=== PATIENT | female | born 1940 | race Caucasian/White ===

== ENCOUNTER → 2024-05-24 12:56 | Outpatient (REF) | payer MEDICARE, SELFPAY ==
[2024-05-24 14:31] LABS: ALT (SGPT) 18 U/L (0-35); AST (SGOT) 26 U/L (14-36); Albumin 4.3 g/dl (3.5-5.0); Alkaline Phosphatase 68 U/L (38-126); Blood Urea Nitrogen 19 mg/dl (7-17); Calcium 9.9 mg/dl (8.4-10.2); Carbon Dioxide 29 mmol/L (22-30); Chloride 101 mmol/L (98-107); Glucose 94 mg/dl (70-99); Potassium 4.9 mmol/L (3.5-5.1); Sodium 136 mmol/L (135-145); Total Protein 6.9 g/dl (6.3-8.2); eGFR > 60.00
== END ==
LOC: RAD 12:56
PROVIDERS: ATTENDING PHYSICIAN Internal Medicine Rheumatology; FAMILY PHYSICIAN Student in an Organized Health Care Education/Training Program
DX: M81.0 Age-related osteoporosis without current pathological fracture (principal)
CPT/HCPCS: 36415; 77080; 80053; 82306

== ENCOUNTER 2024-08-27 03:33 | Inpatient (IN) | payer MEDICARE, SELFPAY ==
[2024-08-26 22:11] VITALS: BP 177/88
[2024-08-26 22:42] LABS: % Basophils 0.4 % (0-2); % Eosinophils 0.2 % (0-6); % Immature Granulocytes 0.7 % (0-0.5); % Lymphocytes 9.8 % (20.5-51.1); % Monocytes 3.7 % (1.7-9.3); % Neutrophils 85.2 % (42.2-75.2); Absolute Immature Granulocytes 0.1 10^3/uL (0-0.05); Absolute Monocytes 0.4 10^3/uL (0.1-0.6); Absolute Neutrophils 8.8 10^3/uL (1.4-6.5); Hematocrit 44.3 % (37.0-47.0); Hemoglobin 14.9 g/dL (12.0-16.0); Mean Corp Hgb Conc. 33.6 g/dL (33.0-37.0); Mean Corpuscular Hgb 30.5 pg (27.0-31.0); Mean Corpuscular Volume 90.8 fL (81.0-99.0); Mean Platelet Volume 9.2 fL (7.4-10.4); Nucleated Red Blood Cells % 0 %; Platelet Count 311 10^3/uL (130-400); Red Blood Cell Count 4.88 10^6/uL (4.20-5.40); Red Cell Dist. Width 12.8 % (11.5-14.5); White Blood Cell Count 10.4 10^3/uL (4.8-10.8)
[2024-08-26 22:55] LABS: ALT (SGPT) 22 U/L (0-35); AST (SGOT) 28 U/L (14-36); Albumin 4.5 g/dl (3.5-5.0); Alkaline Phosphatase 64 U/L (38-126); Blood Urea Nitrogen 27 mg/dl (7-17); Calcium 10.3 mg/dl (8.4-10.2); Carbon Dioxide 32 mmol/L (22-30); Chloride 96 mmol/L (98-107); Glucose 129 mg/dl (70-99); Lipase 72 U/L (23-300); Potassium 4.7 mmol/L (3.5-5.1); Sodium 138 mmol/L (135-145); Total Bilirubin 0.9 mg/dl (0.2-1.3); Total Protein 7.2 g/dl (6.3-8.2); eGFR > 60.00
[2024-08-26 23:06] LABS: Troponin I < 0.012 ng/ml
[2024-08-26 23:30] VITALS: BMI 24.2
[2024-08-26 23:35] VITALS: BP 136/86
[2024-08-27] VITALS (13 sets, daily range): BP systolic 91–157; BP diastolic 42–92; BMI 23.1
--- NOTE | 2024-08-27 00:02 | ED.GENMED ---
History of Present Illness
<COURTNEY Schumacher - Last Filed: 08/27/24 06:12>
General
Chief Complaint: Abdominal Pain
Source: patient and family
Time Seen by Provider: 08/26/24 23:53
Nursing documentation reviewed up to this point in time: agreed with
History of Present Illness
History of Present Illness:
A pleasant 84-year-old female with a past medical history of A-fib presents to the emergency department for epigastric pain and right upper quadrant pain x 12 hours. She states that the abdominal pain initially began shortly after eating chicken
salad at 12 PM, 08/26. she states it became worse throughout the day intermittently. She currently rates rates the pain 05/05.She then states that she went about her day and ate dinner at 4 PM this afternoon which consisted of leftover fettuccine
noodles and sauce. Around 7:30 PM tonight she became nauseous and began vomiting which did not relieve the abdominal pain. She states today she has taken Gas-X and Pepto-Bismol without Relief of symptoms. She admits to being intermittently
constipated at her baseline. She states her last bowel movement was 3 days ago. She denies chest pain, shortness of breath, diarrhea,
Last meal was at 4 PM 08-26-2024. Last fluid intake was 8 PM 08-26-2024.
Past History
<COURTNEY Schumacher - Last Filed: 08/27/24 06:12>
Past History
ED Past Medical History: Valvular disease (MVP), Other (Mitral valve prolapse, Lezama's neuroma bilateral feet) and Other (Arthritis, fractures)
ED Past Surgical History: Gynecological (Hysterectomy) and Orthopedic (Neuroma removal on toes, elbow bone removed)
Social History
Tobacco: Non-smoker
Alcohol: None
Drug: None
Personal:
Living: with family
Employment: Retired
Review of Systems
<COURTNEY Schumacher - Last Filed: 08/27/24 06:12>
Review of Systems
Allergies reviewed?: Yes
All Other Systems: ROS reviewed and negative except as documented in HPI and ROS
Phy Exam
<Vicente Lugo [facility] - Last Filed: 08/27/24 06:12>
General Physical Exam
General Presentation: well appearing and no apparent distress
General age: appears stated age
General Skin: warm
General Habitus: normal and elderly
General Mental: alert
General Hydration: appears well hydrated
Eye Exam
Eye Exam: PERRL and EOMI
Cardiovascular Exam
Cardiovascular Exam: regular rate/rhythm, no edema, no murmur, normal peripheral pulses and systolic murmur
Systolic Murmur: 5/6
Pulmonary Exam
Pulmonary Exam: lungs clear, no respiratory distress, no rales, no crackles, no rhonchi, no wheezing and no cough
Gastrointestinal Exam
Gastrointestinal Exam: soft, non distended, abnormal bowel sounds (hyperactive ) and guarding
Palpation: right upper quadrant: Mild tenderness, right lower quadrant: Mild tenderness and generalized: Mild tenderness
Neurological Exam
Neurological Exam: alert and oriented x3
Musculoskeletal Exam
Musculoskeletal Exam: full ROM
Skin Exam
Skin Exam: normal color, warm/dry and no rash
Psychiatric Exam
Psychiatric Exam: normal mood/affect
Course
<Vicente Lugo [facility] - Last Filed: 08/27/24 06:12>
Orders/Labs/Results
Orders:
Orders
08/26/24 22:15
Electrocardiogram (*1) Urgent
Reason for Study: Tachycardia
08/26/24 22:16
EKG- Treatment ONCE
08/26/24 22:34
Complete Blood Count/With Diff Urgent
Comprehensive Metabolic Panel Urgent
Lipase Urgent
Troponin I Urgent
08/27/24 00:49
Mag Hydrox/Al Hydrox/Simeth [Maalox] 30 ml Phenobarb/Hyoscy/Atropine/Scop [] 10 ml Viscous Lidocaine 2% [Xylocaine Viscous Cup] 10 ml PO NOW
08/27/24 00:50
CT Abd/pel Without Iv Or Oral Urgent
Comment: changed to w/o due to allergy per attending
Reason For Exam: Generalized and right upper quadrant abdominal david
08/27/24 00:54
Mag Hydrox/Al Hydrox/Simeth [Maalox] 30 ml .ROUTE .STK-MED ONE
Phenobarb/Hyoscy/Atropine/Scop [] 10 ml .ROUTE .STK-MED ONE
08/27/24 00:55
Viscous Lidocaine 2% [Xylocaine Viscous Cup] 15 ml .ROUTE .STK-MED ONE
08/27/24 01:30
Morphine Sulfate 4 mg IV NOW STA
Ondansetron Injectable [Zofran] 4 mg IV NOW STA
Pantoprazole [Protonix IV] 40 mg IV NOW STA
08/27/24 02:49
Admit/Transfer Patient As Directed
Co-Sign Provider:
Level of Care: Inpatient admission
Assign to:: Telemetry
Physician / Group: Brock
Diagnosis: SBO
Reason for Telemetry: Arrhythmia
Date to Stop Telemetry: 08/30/24
Time to Stop Telemetry: 11:00
Reason for Hospitalization: SBO
Expected length of stay greater than two midnights?: Yes
ELOS- Estimated Length of Stay in days: 3
I certify the patient meets the requirements for IP care: Yes
Code Status As Directed
Resuscitation Status: Do not resuscitate
Reached after discussion with pt or family/Healthcare POA: Yes
PRN Pain Medication Management As Directed
May give lesser potent ordered pain med per pt: Yes
preference::
Protocol:: Medication orders for pain may be administered in a
manner that supports deferring to patient preference
when the pt is:
- Requesting an ordered lesser potent pain medication.
Least to most potent pain medications are defined
as: acetaminophen < NSAID < tramadol < opioids
(morphine, oxycodone, hydromorphone).
- Requesting a lesser dose of the same medication IF
ORDERED.
- Requesting a less intrusive route of administration
if both routes are prescribed by the provider (PO <
IV).
08/27/24 02:50
DNR Bracelet Application ONCE
08/27/24 04:44
0.9% Sodium Chloride 1000 ml [Nss] 1,000 ml IV 80 mls/hr
Acetaminophen [Tylenol] 650 mg PO Q4HPRN PRN
HYDROmorphone [Dilaudid] 0.5 mg IV Q4HPRN PRN
08/27/24 04:44
Consult Notification Routine
Specialty to Notify: Surgical
SURGICAL CONSULT Routine
Consulting Provider: Julius Lakhani
Was physician already notified: No
Reason for consult: SBO
Activity As Directed
Activity Level: Ambulate
Bladder Scan As Directed
Follow Bladder Retention/Intermittent Cath Algorithm?: Yes
PRN if no void in __ hours: 6
Frequency: Per Retention Algorithm
If Bladder Scan Result >: 400
then:: Straight cath
I/O [Intake/ Output] As Directed
Frequency: Per unit guidelines
Pneumatic Compression Sleeves As Directed
Type: Knee high
Straight Cath As Directed
Frequency: Per Retention Algorithm
Additional Instructions: straight cath as needed per acute urinary retention algorithm for 24 hrs
Additional Instructions: for bladder scan greater than 400 mL
Vital Signs As Directed
Frequency: Per unit guidelines
Weight As Directed
Frequency: Daily
Oxygen Therapy [O2 Therapy] [RESP] Routine
Titrate/Wean O2 to maintain O2 sat greater than (%): 94
DX Deep Vein Thrombosis Video Routine
08/27/24 Breakfast
NPO
Allow oral meds: Yes
Allow clear liquids: Sips of Clears
Basic Metabolic Panel IN AM
Complete Blood Count/No Diff IN AM
Metoprolol [Lopressor] 5 mg IV Q6
08/27/24 08:00
Ondansetron Injectable [Zofran] 4 mg IV Q6HPRN PRN
08/30/24 11:00
DC Protocol for Telemetry ONCE
Abnormal Lab Results
08/26/24
22:34
Abs Immat Gran (auto) 0.1 H 10^3/uL
(0-0.05)
Absolute Neuts (auto) 8.8 H 10^3/uL
(1.4-6.5)
Absolute Lymphs (auto) 1.0 L 10^3/uL
(1.2-3.4)
Immature Gran % 0.7 H %
(0-0.5)
Neutrophils % 85.2 H %
(42.2-75.2)
Lymphocytes % 9.8 L %
(20.5-51.1)
Chloride 96 L mmol/L
(98-107)
Carbon Dioxide 32 H mmol/L
(22-30)
BUN 27 H mg/dl
(7-17)
Glucose 129 H mg/dl
(70-99)
Calcium 10.3 H mg/dl
(8.4-10.2)
08/26/24 22:34
08/26/24 22:34
Vital Signs
Initial and Last Documented VS:
Initial Vital Signs
Temp Pulse Resp BP Pulse Ox
98 F 118 18 177/88 94
08/26/24 22:11 08/26/24 22:11 08/26/24 22:11 08/26/24 22:11 08/26/24 22:11
Last Documented Vital Signs
Temp Pulse Resp BP Pulse Ox
98 F 108 18 148/83 93
08/26/24 22:11 08/27/24 02:07 08/27/24 02:07 08/27/24 02:00 08/27/24 02:45
<Kal Ramirez DO - Last Filed: 08/27/24 02:05>
Orders/Labs/Results
Orders:
Orders
08/26/24 22:15
Electrocardiogram (*1) Urgent
Reason for Study: Tachycardia
08/26/24 22:16
EKG- Treatment ONCE
08/26/24 22:34
Complete Blood Count/With Diff Urgent
Comprehensive Metabolic Panel Urgent
Lipase Urgent
Troponin I Urgent
08/27/24 00:49
Mag Hydrox/Al Hydrox/Simeth [Maalox] 30 ml Phenobarb/Hyoscy/Atropine/Scop [] 10 ml Viscous Lidocaine 2% [Xylocaine Viscous Cup] 10 ml PO NOW
08/27/24 00:50
CT Abd/pel Without Iv Or Oral Urgent
Comment: changed to w/o due to allergy per attending
Reason For Exam: Generalized and right upper quadrant abdominal david
08/27/24 00:54
Mag Hydrox/Al Hydrox/Simeth [Maalox] 30 ml .ROUTE .STK-MED ONE
Phenobarb/Hyoscy/Atropine/Scop [] 10 ml .ROUTE .STK-MED ONE
08/27/24 00:55
Viscous Lidocaine 2% [Xylocaine Viscous Cup] 15 ml .ROUTE .STK-MED ONE
08/27/24 01:30
Morphine Sulfate 4 mg IV NOW STA
Ondansetron Injectable [Zofran] 4 mg IV NOW STA
Pantoprazole [Protonix IV] 40 mg IV NOW STA
08/27/24 02:49
Admit/Transfer Patient As Directed
Co-Sign Provider:
Level of Care: Inpatient admission
Assign to:: Telemetry
Physician / Group: Brock
Diagnosis: SBO
Reason for Telemetry: Arrhythmia
Date to Stop Telemetry: 08/30/24
Time to Stop Telemetry: 11:00
Reason for Hospitalization: SBO
Expected length of stay greater than two midnights?: Yes
ELOS- Estimated Length of Stay in days: 3
I certify the patient meets the requirements for IP care: Yes
Code Status As Directed
Resuscitation Status: Do not resuscitate
Reached after discussion with pt or family/Healthcare POA: Yes
PRN Pain Medication Management As Directed
May give lesser potent ordered pain med per pt: Yes
preference::
Protocol:: Medication orders for pain may be administered in a
manner that supports deferring to patient preference
when the pt is:
- Requesting an ordered lesser potent pain medication.
Least to most potent pain medications are defined
as: acetaminophen < NSAID < tramadol < opioids
(morphine, oxycodone, hydromorphone).
- Requesting a lesser dose of the same medication IF
ORDERED.
- Requesting a less intrusive route of administration
if both routes are prescribed by the provider (PO <
IV).
08/27/24 02:50
DNR Bracelet Application ONCE
08/27/24 04:44
0.9% Sodium Chloride 1000 ml [Nss] 1,000 ml IV 80 mls/hr
Acetaminophen [Tylenol] 650 mg PO Q4HPRN PRN
HYDROmorphone [Dilaudid] 0.5 mg IV Q4HPRN PRN
08/27/24 04:44
Consult Notification Routine
Specialty to Notify: Surgical
SURGICAL CONSULT Routine
Consulting Provider: Julius Lakhani
Was physician already notified: No
Reason for consult: SBO
Activity As Directed
Activity Level: Ambulate
Bladder Scan As Directed
Follow Bladder Retention/Intermittent Cath Algorithm?: Yes
PRN if no void in __ hours: 6
Frequency: Per Retention Algorithm
If Bladder Scan Result >: 400
then:: Straight cath
I/O [Intake/ Output] As Directed
Frequency: Per unit guidelines
Pneumatic Compression Sleeves As Directed
Type: Knee high
Straight Cath As Directed
Frequency: Per Retention Algorithm
Additional Instructions: straight cath as needed per acute urinary retention algorithm for 24 hrs
Additional Instructions: for bladder scan greater than 400 mL
Vital Signs As Directed
Frequency: Per unit guidelines
Weight As Directed
Frequency: Daily
Oxygen Therapy [O2 Therapy] [RESP] Routine
Titrate/Wean O2 to maintain O2 sat greater than (%): 94
DX Deep Vein Thrombosis Video Routine
08/27/24 Breakfast
NPO
Allow oral meds: Yes
Allow clear liquids: Sips of Clears
Basic Metabolic Panel IN AM
Complete Blood Count/No Diff IN AM
Metoprolol [Lopressor] 5 mg IV Q6
08/27/24 08:00
Ondansetron Injectable [Zofran] 4 mg IV Q6HPRN PRN
08/30/24 11:00
DC Protocol for Telemetry ONCE
Abnormal Lab Results
08/26/24
22:34
Abs Immat Gran (auto) 0.1 H 10^3/uL
(0-0.05)
Absolute Neuts (auto) 8.8 H 10^3/uL
(1.4-6.5)
Absolute Lymphs (auto) 1.0 L 10^3/uL
(1.2-3.4)
Immature Gran % 0.7 H %
(0-0.5)
Neutrophils % 85.2 H %
(42.2-75.2)
Lymphocytes % 9.8 L %
(20.5-51.1)
Chloride 96 L mmol/L
(98-107)
Carbon Dioxide 32 H mmol/L
(22-30)
BUN 27 H mg/dl
(7-17)
Glucose 129 H mg/dl
(70-99)
Calcium 10.3 H mg/dl
(8.4-10.2)
08/26/24 22:34
08/26/24 22:34
Vital Signs
Initial and Last Documented VS:
Initial Vital Signs
Temp Pulse Resp BP Pulse Ox
98 F 118 18 177/88 94
08/26/24 22:11 08/26/24 22:11 08/26/24 22:11 08/26/24 22:11 08/26/24 22:11
Last Documented Vital Signs
Temp Pulse Resp BP Pulse Ox
98 F 108 18 148/83 93
08/26/24 22:11 08/27/24 02:07 08/27/24 02:07 08/27/24 02:00 08/27/24 02:45
<COURTNEY Schumacher - Last Filed: 08/27/24 06:12>
MDM/Problems Addressed
Differential Diagnosis Includes:
Gastroenteritis, pancreatitis, appendicitis, small bowel obstruction
<COURTNEY Schumacher - Last Filed: 08/27/24 06:12>
*Critical Care Note
Total Time (30-74mins, 75-104mins- exclusive of procedures): Not Applicable
<COURTNEY Schumacher - Last Filed: 08/27/24 06:12>
Update Note
Update Note:
08/27/2024 0248 AM: ST PA: Patient was attempting to sleep when I entered the room. She is pleasant, pain is improving, all questions regarding her diagnosis were answered.
08/27/2024 0347 AM: [facility]: Just spoke with a family friend. She is concerned that patient has not had a bowel movement for 7+ days. She also states patient may struggle with diagnosis due to having very little family support.
ED Attending Note
<ST EndyPA - Last Filed: 08/27/24 06:12>
-
Portions of this chart may have been created with voice recognition software.� Occasional wrong word or��sound alike� substitutions may have occurred due to the inherent limitations of voice recognition software.
<Kal Ramirez DO - Last Filed: 08/27/24 02:05>
ED Attending Note
Patient seen and examined by attending physician: Yes
I performed the substantive portion of visit, reviewed & personally made and approve the management plan that is documented in note by myself or MONSERRAT.: Yes
ED Attending Note:
84-year-old female presents emergency department with epigastric and right upper quadrant abdominal pain. This been present for the last 12 hours. Patient states that shortly after lunch she developed this pain. Denies nausea or vomiting. Denies
chest pain or shortness of breath. Patient was seen in conjunction with the [facility] student. I have reviewed and agree with the history and treatment plan presented. On my independent physical exam, patient is awake, alert, and oriented x3 minimal
acute distress. Abdomen soft with diffuse tenderness to palpation. She does have slightly hyperactive bowel sounds present. Skin is warm and dry. Moves all 4 extremities.
Plan is a GI cocktail and CT scan of the abdomen
CT of the abdomen pelvis shows small bowel obstruction with single transition point
CT ABDOMEN AND PELVIS (without IV contrast)
IMPRESSION:
Mild fecal loading with normal appendix. Stomach unremarkable. Dilated fluid distended proximal and mid small bowel up to 3.3 cm followed to transition point central mid abdomen axial image 76 likely from single adhesion compatible with small
bowel obstruction. No significant mesenteric edema.
Nonobstructing 2 mm right mid pole stone with no hydronephrosis. Minimally filled urinary bladder unremarkable. Hysterectomy with no adnexal mass.
Minimal cardiomegaly. No pleural effusion. Multiple bilateral lung nodules including dominant lesion anterolateral left lower lobe 2 x 1.3 cm on axial image 18, possibly reflecting metastatic disease. No free air or fluid.
Moderate aortic atherosclerosis without aneurysm. No acute osseous findings. Minimal anterolisthesis L4 on L5.
Discharge Plan
Departure
Patient Disposition: Admit
Date of Disposition: 08/27/24
Time of Disposition: 02:04
Presentation/result/management discussed w/ accepting MD/DO: Hospitalist
Condition: Good
Discharge Problem:
SBO (small bowel obstruction)
Interventions
Interventions:
*Risk Screen - Suicide Last Done: 08/26/24 23:30
*General Assessment Last Done: 08/26/24 23:30
*Neglect/Abuse Screening Last Done: 08/26/24 23:30
ED- Fall Risk Assessment Last Done: 08/26/24 23:30
*ED COVID-19 Vaccine History Last Done: 08/26/24 23:30
CM-Sgdvzd-Cjgtdvgrys Assessment Last Done: 08/26/24 23:32
[2024-08-27] MEDS: MAALOX 50 PO (00:57)
[2024-08-27] MEDS: ZOFRAN 4 MG IV ×3 (01:59→15:14)
[2024-08-27] MEDS: MORPHINE SULFATE 4 MG IV (01:59)
[2024-08-27] MEDS: PROTONIX IV 40 MG IV (02:00)
--- NOTE | 2024-08-27 02:51 | HPS.HSE ---
Family Physician
-
Family Physician: Kristel Kahn MD
Chief Complaint
-
Abd Pain, N/V
History of Present Illness
Patient is an 84y F with PMH significant for A-Fib and hypertension who presents to ED complaining of abdominal pain with N/V. Patient states that she started with epigastric / upper abdominal discomfort this AM. Her symptoms persisted
throughout the day despite Pepto Bismol, Gas-X, etc. Around 7:30 PM and after eating dinner, patient noted increase in her pain and development of N/V x 4 of non-bloody emesis. The emesis did not improve her discomfort. Patient states that the
pain does not radiate to the back, lower abdomen, etc.
Patient denies any prior history of similar episodes.
Patient states that she has not moved her bowels in > 5 days. She notes that she typically goes 'a few days' between bowel movements.
She also does not believe that she has passed flatus in a few days.
Medical History
Past Medical History
Past Medical History: Reports Other
Additional Past Medical History:
Paroxysmal A-Fib
Hypertension
Osteoporosis
Anxiety
GERD
Past Surgical History: Reports Other
Additional Past Surgical History:
ROSSI / BSO
Cataracts
Left Elbow Surgery
Foot Surgery
Social History
Tobacco: Non-smoker
Alcohol: None
Drug: None
Personal:
Family History
Family History: Not pertinent
Allergies / Home Medications
Allergies reflects when Allergies were last updated in [facility].
Home Medications with original date entered in [facility]
Allergy/Medication List:
Allergies
Allergy/AdvReac Type Severity Reaction Status Date / Time
iodine Allergy Unknown Verified 12/12/21 07:32
IV contrast Allergy red, Uncoded 12/12/21 07:32
itchy,
unable to
breathe
IVP dye Allergy red, Uncoded 12/12/21 07:32
itchy,
unable to
breathe
Home Medications
apixaban 2.5 mg tablet (Eliquis) 2.5 mg PO BID #60 tabs 09/21/19
diltiazem HCl 180 mg capsule,24 hr,extended release 180 mg PO DAILY 08/27/24
furosemide 20 mg tablet 20 mg PO DAILY 08/27/24
metoprolol succinate 100 mg tablet,extended release 24 hr 100 mg PO DAILY 08/27/24
Review of Systems
-
History Source: Patient
A 12 point ROS was completed and negative except as noted: Yes
Constitutional: Denies Fever or Chills
Respiratory: Denies Cough or Trouble Breathing
Cardiac: Denies Chest Pain or Palpitations
Abdomen/GI: Reports Abdominal Pain, Nausea, Vomiting and Constipated; Denies Diarrhea or Anorexia
: Denies Dysuria or Frequency
Neurological: Denies Dizzy or Headache
Psych: Denies Depression or Anxiety
Physical Exam
Vital Signs
Vital Signs
Temp Pulse Resp BP Pulse Ox
98 F 108 18 148/83 93
08/26/24 22:11 08/27/24 02:07 08/27/24 02:07 08/27/24 02:00 08/27/24 02:45
Physical Exam
General: Other (84y F in no acute distress.)
HEENT: Moist mucous membranes and PERRLA
Respiratory: Clear; No Wheezes, Rales or Rhonchi
Cardiac: Irregular Rhythm; No Murmur
GI: Other (Softly distended. Decreased BS throughout. No focal tenderness, rebound or guarding.)
Musculoskeletal: No Clubbing, No Cyanosis and No Edema
Neuro: AO x 3
Laboratory Results
-
08/26/24 22:34
08/26/24 22:34
Laboratory Results
Total Bilirubin 0.9 mg/dl (0.2-1.3) 08/26/24 22:34
AST 28 U/L (14-36) 08/26/24 22:34
ALT 22 U/L (0-35) 08/26/24 22:34
Alkaline Phosphatase 64 U/L (38-126) 08/26/24 22:34
Troponin I < 0.012 ng/ml 08/26/24 22:34
Lipase 72 U/L (23-300) 08/26/24 22:34
Impression/Plan
-
A/P: Patient is an 84y F with PMH significant for HTN and A-Fib who presents to ED complaining of abdominal pain and N/V.
SBO
- Admit for further evaluation and treatment.
- CT scan show dilated loops of bowel consistent with SBO with transition point identified in the central abdomen.
- Prior h/o ROSSI / BSO - no other intra-abdominal surgeries. No prior h/o SBO.
- NPO, IVFs, pain control and antiemetics.
- Consider NG decompression if increased pain or recurrent N/V.
- Surgery evaluation for additional recommendations.
- Follow for clinical improvement.
Paroxysmal A-Fib
- Stable. Monitor on telemetry overnight.
- IV Lopressor for now for rate control while NPO.
- Hold all PO meds - including Eliquis - acutely.
Benign Hypertension
- Stable. Holding PO meds as noted above.
- IV Lopressor while NPO.
DVT Prophylaxis: SCDs
Code Status: DNR
[2024-08-27] MEDS: NSS 1000 IV ×2 (05:06→18:22)
[2024-08-27 06:52] LABS: Hematocrit 40.9 % (37.0-47.0); Hemoglobin 13.8 g/dL (12.0-16.0); Mean Corp Hgb Conc. 33.7 g/dL (33.0-37.0); Mean Corpuscular Hgb 30.8 pg (27.0-31.0); Mean Corpuscular Volume 91.3 fL (81.0-99.0); Mean Platelet Volume 9.3 fL (7.4-10.4); Platelet Count 278 10^3/uL (130-400); Red Blood Cell Count 4.48 10^6/uL (4.20-5.40); Red Cell Dist. Width 12.7 % (11.5-14.5); White Blood Cell Count 8.3 10^3/uL (4.8-10.8)
[2024-08-27] MEDS: LOPRESSOR IV (07:00)
[2024-08-27 07:07] LABS: Blood Urea Nitrogen 24 mg/dl (7-17); Calcium 9.6 mg/dl (8.4-10.2); Carbon Dioxide 33 mmol/L (22-30); Chloride 98 mmol/L (98-107); Estimated Creatinine Clearance 46 ml/min; Glucose 103 mg/dl (70-99); Potassium 4.4 mmol/L (3.5-5.1); Sodium 138 mmol/L (135-145); eGFR > 60.00
--- NOTE | 2024-08-27 07:52 | W.PN.HOSP.TC ---
Today's Communication/Plan
-
see A/P
Assessment / Plan
Assessment / Plan
84y F with PMH significant for A-Fib and hypertension who presented to ED complaining of abdominal pain with N/V. Patient states that she started with epigastric / upper abdominal discomfort the morning of admission.
Her symptoms persisted throughout the day despite Pepto Bismol, Gas-X, etc. Around 7:30 PM and after eating dinner, patient noted increase in her pain and development of N/V x 4 of non-bloody emesis.
The emesis did not improve her discomfort. Patient states that the pain does not radiate to the back, lower abdomen, etc.
Patient denies any prior history of similar episodes.
Patient states that she has not moved her bowels in > 5 days. She notes that she typically goes 'a few days' between bowel movements.
She also does not believe that she has passed flatus in a few days.
A/P:
# SBO
CT scan showed dilated loops of bowel consistent with SBO with transition point identified in the central abdomen.
Prior h/o ROSSI / BSO - no other intra-abdominal surgeries. No prior h/o SBO.
NPO, IVFs, pain control and antiemetics.
Consider NG decompression if increased pain or recurrent N/V.
Surgery evaluation for additional recommendations.
Follow for clinical improvement.
# Paroxysmal A-Fib, Stable.
Monitor on telemetry overnight.
IV Lopressor for now for rate control while NPO.
Hold all PO meds - including Eliquis - acutely.
# Benign Hypertension, Stable.
Holding PO meds as noted above.
IV Lopressor while NPO.
DVT Prophylaxis: SCDs
Code Status: DNR
Anticipated Discharge: > 48 hours
Subjective/Interval History
-
Date of Service: August 27, 2024
Objective Data
-
Labs:
Laboratory Results
08/26/24 08/27/24
22:34 06:43
WBC 10.4 8.3
Hgb 14.9 13.8
Hct 44.3 40.9
Plt Count 311 278
Sodium 138 138
Potassium 4.7 4.4
Chloride 96 L 98
Carbon Dioxide 32 H 33 H
BUN 27 H 24 H
Creatinine 0.8 0.7
Glucose 129 H 103 H
Calcium 10.3 H 9.6
Total Bilirubin 0.9
AST 28
ALT 22
Alkaline Phosphatase 64
Vital Signs:
Vital Signs
Temp Pulse Resp BP Pulse Ox
36.6 C 97 23 91/42 90
08/26/24 22:11 08/27/24 06:15 08/27/24 06:15 08/27/24 06:01 08/27/24 06:15
Review of Systems
-
Abdomen/GI: Reports Abdominal Pain and Nausea; Denies Vomiting
Physical Exam
-
General: Well Developed, Well Nourished, No Apparent Distress, Comfortable and Conversant; Negative Respiratory Distress
HEENT: Normocephalic, Atraumatic, Nose Appears Normal and Ears Appear Normal; Negative Oxygen
Respiratory: Clear to Auscultation and Non Labored Respirations; Negative Accessory Resp Muscle Use
Cardiac: Regular Rhythm and S1/S2
GI: Soft and Nondistended; Negative Normal Bowel Sounds
Skin: Warm and Dry
Neuro: Awake, Alert, Oriented and AO x 3
Psych: Calm and Intact Judgement/Insight
Data Reviewed
-
Labs: Labs Reviewed by me
[2024-08-27] MEDS: DILAUDID 0.25 MG IV ×3 (08:58→22:04)
--- NOTE | 2024-08-27 10:45 | CON.GS ---
Addendum entered and electronically signed by Tristin Ivan MD 08/27/24 11:05:
I saw and examined the patient.
The Professor Of Finance's note was reviewed and I agree with the note.
Comment: 1 day n/v/abd pain, normally has 1-2 BMs per week, denies straining or hard stools. Emesis in ED this am. Presently denies nausea. On exam mildly distended, mildly ttp mainly to left hemiabdomen. CT with dilated proximal sb loops,
decompressed distal loops,. presumed transition point in right pelvis. PSH hysterectomy. Suspect adhesive SBO. Last dose eliquis yesterday am. PLan for trial non-op mgmt with NPO/IVF, rec NGT if n/v returns.
Original Note:
Consultation
-
Date/Time Consultation Requested: 08/27/24 0444
Requesting Provider: Brock
Performing Provider: Lacho Ivan
Reason for Consultation: SBO
Medical History
-
Chief Complaint: Abdominal pain
History of Present Illness:
Ms Ovalle is an 84 yo female with a h/o ROSSI/BSO and PAF on Eliquis (LD 10 am) who presented with nausea, vomiting and abdominal pain overnight. She notes that she usually does not stool every day, but it has been 5 days since her last BM. She was
asymptomatic until yesterday when she began to develop abdominal pain with nausea and vomiting. She has not passed any flatus over the past few days and notes that today she has been burping. She had an episode of n/v early this morning, but denies
active nausea currently. Her abdomen is mildly distended with mild tenderness predominantly on the left side. She denies fevers or chills. She denies prior episodes in the past.
Past Medical History
Past Medical History: Arrhythmias (PAF s/p cardioversion 2021), GERD, HTN, Hypercholesterolemia and Other (osteoporosis)
Past Surgical History: Orthopedic (foot procedure, left elbow surgery) and Other
Social History
Tobacco: Non-Smoker
Alcohol: None
Family History
Family History: Cancer (mother with cad, lung ca)
Allergies / Home Medications
Allergy/AdvReac Type Severity Reaction Status Date / Time
iodine Allergy Unknown Verified 12/12/21 07:32
IV contrast Allergy red, Uncoded 12/12/21 07:32
itchy,
unable to
breathe
IVP dye Allergy red, Uncoded 12/12/21 07:32
itchy,
unable to
breathe
�Medication �Instructions �Recorded �Confirmed �Type
apixaban 2.5 mg tablet (Eliquis) 2.5 mg PO BID #60 tabs 09/21/19 08/27/24 Rx
acetaminophen 650 mg 1,300 mg PO Q12H 08/27/24 08/27/24 History
tablet,extended release
cholecalciferol (vitamin D3) 25 25 mcg PO DAILY 08/27/24 08/27/24 History
mcg (1,000 unit) tablet (Vitamin
D3)
diltiazem HCl 180 mg capsule,24 180 mg PO QPM 08/27/24 08/27/24 History
hr,extended release
furosemide 20 mg tablet 20 mg PO DAILY 08/27/24 08/27/24 History
metoprolol succinate 100 mg 100 mg PO DAILY 08/27/24 08/27/24 History
tablet,extended release 24 hr
therapeutic multivitamin 1 tab PO DAILY 08/27/24 08/27/24 History
Review of Systems
-
History Source: Patient
All other systems: Negative unless noted
A 10 point review of systems was completed, and was negative except as per HPI.
Physical Exam
Vital Signs
Temp Pulse Resp BP Pulse Ox
98 F 84 18 94/56 96
08/26/24 22:11 08/27/24 10:00 08/27/24 10:00 08/27/24 07:00 08/27/24 10:00
08/26/24 08/27/24 08/28/24
06:59 06:59 06:59
Actual Weight 60 kg
Body Mass Index (BMI) 24.2
Lab Results
08/27/24 06:43
08/27/24 06:43
WBC 8.3 10^3/uL (4.8-10.8) 08/27/24 06:43
Hgb 13.8 g/dL (12.0-16.0) 08/27/24 06:43
Hct 40.9 % (37.0-47.0) 08/27/24 06:43
Plt Count 278 10^3/uL (130-400) 08/27/24 06:43
Abs Immat Gran (auto) 0.1 10^3/uL (0-0.05) H 08/26/24 22:34
Neutrophils % 85.2 % (42.2-75.2) H 08/26/24 22:34
Physical Exam
General: Well Developed and Well Nourished
HEENT: Moist Mucous Membranes
Respiratory: Non Labored Respirations
GI: Soft, Tender (mild to mid abdomen into left side) and Distended (mild)
Skin: Warm
Neuro: Awake, Alert and AO x 3
Psych: Calm
Assessment / Plan
-
84 yo female with h/o ROSSI/BSO and PAF on Eliquis (LD 10 am) who presented with nausea, vomiting and abdominal pain. Last BM was 5 days ago with development of abdominal pain with n/v yesterday causing her to present for evaluation. Not passing
flatus. CT imaging reviewed and consistent with adhesive SBO. Afebrile, BP low normal. Hypoxia present when sleeping to 84%. No leukocytosis present.
--If develops nausea again, would place NGT for decompression
--Analgesics/antiemetics prn
--Bowel rest; continue NPO
Will follow with medical management: IVF/Bowel rest/supportive treatment. Hold Eliquis in case no improvement with medical management alone and surgical intervention needed.
No plans for emergent surgery today.
[2024-08-27] MEDS: LOPRESSOR 5 MG IV ×3 (12:44→23:55)
[2024-08-27] MEDS: TYLENOL 650 MG PO (13:30)
--- NOTE | 2024-08-27 16:29 | PTCARENOTE ---
Pt admitted to rm 317-1 from ED. Tele box # [address], afib in 80s on monitor. Pt alert/cooperative/pleasant. VSS. Oriented to room and call enriquez. POC explained, verbalized understanding of all instructions. Able to make needs known, call enriquez in
reach.
[2024-08-27] MEDS: PEPCID 20 MG IV (23:54)
[2024-08-28] MEDS: ZOFRAN 4 MG IV ×3 (03:49→21:38)
[2024-08-28 03:51] VITALS: BP 142/77
[2024-08-28] MEDS: LOPRESSOR 2.5 MG IV (04:09)
[2024-08-28] MEDS: DILAUDID 0.25 MG IV (04:11)
[2024-08-28] MEDS: NSS 1000 IV ×2 (04:11→17:28)
[2024-08-28 04:22] LABS: Blood Urea Nitrogen 24 mg/dl (7-17); Calcium 9.6 mg/dl (8.4-10.2); Carbon Dioxide 27 mmol/L (22-30); Chloride 100 mmol/L (98-107); Estimated Creatinine Clearance 46 ml/min; Glucose 124 mg/dl (70-99); Magnesium 2.3 mg/dl (1.6-2.3); Potassium 4.4 mmol/L (3.5-5.1); Sodium 140 mmol/L (135-145); eGFR > 60.00
[2024-08-28 04:28] LABS: % Basophils 0.4 % (0-2); % Eosinophils 0.4 % (0-6); % Immature Granulocytes 0.3 % (0-0.5); % Lymphocytes 11.2 % (20.5-51.1); % Monocytes 10.6 % (1.7-9.3); % Neutrophils 77.1 % (42.2-75.2); Absolute Lymphocytes 0.8 10^3/uL (1.2-3.4); Absolute Monocytes 0.8 10^3/uL (0.1-0.6); Absolute Neutrophils 5.7 10^3/uL (1.4-6.5); Hematocrit 44.7 % (37.0-47.0); Hemoglobin 14.8 g/dL (12.0-16.0); Mean Corp Hgb Conc. 33.1 g/dL (33.0-37.0); Mean Corpuscular Hgb 30.6 pg (27.0-31.0); Mean Corpuscular Volume 92.4 fL (81.0-99.0); Mean Platelet Volume 9.5 fL (7.4-10.4); Nucleated Red Blood Cells % 0 %; Platelet Count 279 10^3/uL (130-400); Red Blood Cell Count 4.84 10^6/uL (4.20-5.40); Red Cell Dist. Width 12.7 % (11.5-14.5); White Blood Cell Count 7.4 10^3/uL (4.8-10.8)
[2024-08-28] MEDS: LOPRESSOR 5 MG IV ×7 (05:46→23:36)
[2024-08-28 06:00] VITALS: BMI 23.4
[2024-08-28 07:18] VITALS: BP 127/90
--- NOTE | 2024-08-28 10:20 | W.PN.HOSP.TC ---
Addendum entered and electronically signed by Codie Dash MD 08/28/24 10:45:
# Incidental finding of left lower lobe pulmonary mass
recc outpt eval
Pt's POA informed
Original Note:
Today's Communication/Plan
-
see A/P
Assessment / Plan
Assessment / Plan
84y F with PMH significant for A-Fib and hypertension who presented to ED complaining of abdominal pain with N/V. Patient states that she started with epigastric / upper abdominal discomfort the morning of admission.
Her symptoms persisted throughout the day despite Pepto Bismol, Gas-X, etc. Around 7:30 PM and after eating dinner, patient noted increase in her pain and development of N/V x 4 of non-bloody emesis.
The emesis did not improve her discomfort. Patient states that the pain does not radiate to the back, lower abdomen, etc.
Patient denies any prior history of similar episodes.
Patient states that she has not moved her bowels in > 5 days. She notes that she typically goes 'a few days' between bowel movements.
She also does not believe that she has passed flatus in a few days.
CT AP:
1). Small bowel obstruction
2). 2 cm left lower lobe pulmonary mass may be benign or malignant and could be further evaluated with PET scan
3). Multilevel lumbar degenerative disc disease with grade 1 spondylolisthesis of L4 on L5
A/P:
# SBO
CT scan showed dilated loops of bowel consistent with SBO with transition point identified in the central abdomen.
Prior h/o ROSSI / BSO - no other intra-abdominal surgeries. No prior h/o SBO.
NPO, IVFs, pain control and antiemetics.
Consider NG decompression if increased pain or recurrent N/V.
Surgery evaluation for additional recommendations.
Follow for clinical improvement.
# Paroxysmal A-Fib, Stable.
Monitor on telemetry overnight.
IV Lopressor ATC and PRN for rate control while NPO.
Hold all PO meds - including Eliquis - acutely.
# Benign Hypertension, Stable.
Holding PO meds as noted above.
IV Lopressor while NPO.
# Incidental finding of left lower lobe pulmonary mass
recc outpt eval
Pt informed
DVT Prophylaxis: SCDs
Code Status: DNR
updated Piedad on the phone
Anticipated Discharge: > 48 hours
Subjective/Interval History
-
Date of Service: August 28, 2024
Objective Data
-
Labs:
Laboratory Results
08/28/24 08/28/24 08/28/24
03:57 03:57 03:57
WBC 7.4
Hgb 14.8
Hct 44.7
Plt Count 279
Sodium Cancelled 140
Potassium Cancelled 4.4
Chloride Cancelled
Carbon Dioxide
BUN
Creatinine
Glucose
Calcium
08/28/24 08/28/24 08/28/24
03:57 03:57 03:57
WBC
Hgb
Hct
Plt Count
Sodium
Potassium
Chloride 100
Carbon Dioxide Cancelled 27
BUN Cancelled 24 H
Creatinine Cancelled
Glucose
Calcium
08/28/24 08/28/24 08/28/24
03:57 03:57 03:57
WBC
Hgb
Hct
Plt Count
Sodium
Potassium
Chloride
Carbon Dioxide
BUN
Creatinine 0.7
Glucose Cancelled 124 H
Calcium Cancelled 9.6
Vital Signs:
Vital Signs
Temp Pulse Resp BP Pulse Ox
36.4 C 122 18 127/90 98
08/28/24 07:18 08/28/24 08:25 08/28/24 07:18 08/28/24 07:18 08/28/24 07:18
I&O
08/27/24 08/28/24 08/29/24
06:59 06:59 05:59
Intake Total 960 / 960
Output Total 200 / 200
Balance 760 / 760
Review of Systems
-
Abdomen/GI: Reports Nausea and Vomiting; Denies Abdominal Pain
Physical Exam
-
General: Well Developed, Well Nourished, No Apparent Distress, Comfortable and Conversant; Negative Respiratory Distress
HEENT: Normocephalic, Atraumatic, Nose Appears Normal, Ears Appear Normal and Oxygen (2L NC)
Respiratory: Clear to Auscultation and Non Labored Respirations; Negative Accessory Resp Muscle Use
Cardiac: Regular Rhythm and S1/S2
GI: Soft and Nondistended; Negative Normal Bowel Sounds
Skin: Warm and Dry
Neuro: Awake, Alert, Oriented and AO x 3
Psych: Calm and Intact Judgement/Insight
Data Reviewed
-
CT Scan: Report Reviewed by me
Labs: Labs Reviewed by me
--- NOTE | 2024-08-28 10:35 | PTCARENOTE ---
patient vomited 400mls of green bile. she verbalized she was feeling nauseous prior. administered PRN Zofran (see MAR). no further vomiting after. will continue to monitor.
[2024-08-28 11:43] VITALS: BP 120/78
[2024-08-28] MEDS: ANESTHETIC LOZENGE 1 LOZENGE PO (11:48)
--- NOTE | 2024-08-28 13:36 | W.PN.GS2 ---
Today's Communication / Plan
-
NGT
hold Eliquis
Assessment / Plan
-
84 yo female with h/o ROSSI/BSO and PAF on Eliquis (LD 10/31 am) who presented with nausea, vomiting and abdominal pain. Last BM was 5 days ago with development of abdominal pain with n/v yesterday causing her to present for evaluation. Not passing
flatus. CT imaging reviewed and consistent with adhesive SBO. Afebrile, BP low normal. Hypoxia present when sleeping to 84%. No leukocytosis present.
--NGT
--Analgesics/antiemetics prn
--Bowel rest; continue NPO
--Hold home Eliquis
--No plans for emergent surgery today.
Subjective Data
-
Date of Service: August 28, 2024
Patient had 400ml of emesis prior to rounding. She still feels nauseous. She has no pain.
Objective Data
-
Intake and Output
08/27/24 08/28/24 08/29/24
06:59 06:59 05:59
Intake Total 960 / 960
Output Total 200 / 200
Balance 760 / 760
Intake:
IV fluids (Total) 960 / 960
Output:
Emesis 200 / 200
Other:
Number of approximated MODERATE 2
amounts of urine
Vital Signs
Temp Pulse Resp BP Pulse Ox
97.6 F 120 16 120/78 98
08/28/24 11:43 08/28/24 11:48 08/28/24 11:43 08/28/24 11:48 08/28/24 11:43
Lab Results
08/28/24 03:57
08/28/24 03:57
Calcium 9.6 mg/dl (8.4-10.2) 08/28/24 03:57
Calcium Cancelled 08/28/24 03:57
Magnesium 2.3 mg/dl (1.6-2.3) 08/28/24 03:57
Total Bilirubin 0.9 mg/dl (0.2-1.3) 08/26/24 22:34
AST 28 U/L (14-36) 08/26/24 22:34
ALT 22 U/L (0-35) 08/26/24 22:34
Alkaline Phosphatase 64 U/L (38-126) 08/26/24 22:34
Total Protein 7.2 g/dl (6.3-8.2) 08/26/24 22:34
Albumin 4.5 g/dl (3.5-5.0) 08/26/24 22:34
Physical Exam
-
General: Well Developed and Well Nourished
HEENT: Moist Mucous Membranes
Respiratory: Non Labored Respirations
GI: Soft, Tender (mild to mid abdomen into left side) and Distended (mild)
Skin: Warm
Neuro: Awake, Alert and AO x 3
Psych: Calm
--- NOTE | 2024-08-28 14:54 | PTCARENOTE ---
Addendum entered by Marika Owens RN 08/28/24 14:57:
patient still nauseous. discomfort in mid to left side abdomen, abdomen distended. at 11:40, #16 FR [place] Sump NG tube inserted via 1st attempted in right nare. placement confirmed, flushes easily,draining green bile. since NG Tube inserted no
further vomiting or nausea, c/o throat pain and Cepacol lozenge and throat spray administered as ordered with some relief, will continue to monitor.
Original Note:
patient still nauseous. discomfort in mid to left side abdomen, abdomen distended. #16 FR [place] Sump NG tube inserted via 1st attempted in right nare. placement confirmed, flushes easily,draining green bile. since NG Tube inserted no further
vomiting or nausea, c/o throat pain and Cepacol lozenge and throat spray administered as ordered with some relief, will continue to monitor.
[2024-08-28 15:39] VITALS: BP 137/86
--- NOTE | 2024-08-28 17:55 | PTCARENOTE ---
patient's heart rate at rest is in low 100's to 120 BPM at rest. Her heart rate can increase to 170 with sitting on edge of bed or standing at bedside, but not sustained. administered PRN Lopressor twice this shift as ordered, will continue to
monitor.
[2024-08-28 19:00] VITALS: BP 140/87
[2024-08-28] MEDS: CHLORASEPTIC/SORE THROAT SPRAY 2 SPRAY PO (21:23)
[2024-08-28 23:00] VITALS: BP 152/101
[2024-08-29] VITALS (7 sets, daily range): BP systolic 131–168; BP diastolic 77–102; BMI 23.0
[2024-08-29] MEDS: COMPAZINE 5 MG IV (00:50)
[2024-08-29] MEDS: FLUSH (NSS) 1 FLUSH IV (00:51)
[2024-08-29] MEDS: LOPRESSOR 5 MG IV ×7 (01:27→23:13)
[2024-08-29] MEDS: NSS 1000 IV ×2 (03:56→15:24)
[2024-08-29 04:30] LABS: Hematocrit 41.8 % (37.0-47.0); Hemoglobin 13.7 g/dL (12.0-16.0); Mean Corp Hgb Conc. 32.8 g/dL (33.0-37.0); Mean Corpuscular Hgb 30.8 pg (27.0-31.0); Mean Corpuscular Volume 93.9 fL (81.0-99.0); Mean Platelet Volume 9.5 fL (7.4-10.4); Platelet Count 255 10^3/uL (130-400); Red Blood Cell Count 4.45 10^6/uL (4.20-5.40); Red Cell Dist. Width 12.6 % (11.5-14.5); White Blood Cell Count 7.3 10^3/uL (4.8-10.8)
[2024-08-29 04:37] LABS: Blood Urea Nitrogen 23 mg/dl (7-17); Calcium 9.2 mg/dl (8.4-10.2); Carbon Dioxide 28 mmol/L (22-30); Chloride 102 mmol/L (98-107); Estimated Creatinine Clearance 53 ml/min; Glucose 118 mg/dl (70-99); Magnesium 2.5 mg/dl (1.6-2.3); Potassium 4.3 mmol/L (3.5-5.1); Sodium 143 mmol/L (135-145); eGFR > 60.00
--- NOTE | 2024-08-29 04:38 | W.PN.UPDATE ---
Update Note
Progress Note Update
HR continuos to be 120's-140's EKG with AFib with RVR, BP 140's/70's 22, 99%. Patient received metoprolol 5mg scheduled and PRN and without much improvement. Patient symptoms at baseline 'uncomfortable' otherwise asymptomatic. NGT in place,
draining, IV fluids maintained, Afebrile, electrolytes wnl, Eliquis is on hold. Will order Cardizem 5mg IV now.
HR remains 102-115, Won't maintain Cardizem drip at present. continue metoprolol
[2024-08-29] MEDS: CARDIZEM 5 MG IV (05:21)
--- NOTE | 2024-08-29 05:30 | PTCARENOTE ---
Pt HR continues to be uncontrolled by Q6 metoprolol dose paired with PRN dose. HR ranges from 102-170's. sustains in the 120's-150 majority of the shift. Pt feels 'heart racing,' but asymptomatic otherwise. CHAMP Gibbons aware. one time Cardizem dose
given with HR of 100-115's. Will follow plan of care and continue to monitor.
[2024-08-29] MEDS: DILAUDID 0.25 MG IV (09:09)
--- NOTE | 2024-08-29 10:07 | W.PN.HOSP.TC ---
Today's Communication/Plan
-
see A/P
Assessment / Plan
Assessment / Plan
84y F with PMH significant for A-Fib and hypertension who presented to ED complaining of abdominal pain with N/V. Patient states that she started with epigastric / upper abdominal discomfort the morning of admission.
Her symptoms persisted throughout the day despite Pepto Bismol, Gas-X, etc. Around 7:30 PM and after eating dinner, patient noted increase in her pain and development of N/V x 4 of non-bloody emesis.
The emesis did not improve her discomfort. Patient states that the pain does not radiate to the back, lower abdomen, etc.
Patient denies any prior history of similar episodes.
Patient states that she has not moved her bowels in > 5 days. She notes that she typically goes 'a few days' between bowel movements.
She also does not believe that she has passed flatus in a few days.
CT AP:
1). Small bowel obstruction
2). 2 cm left lower lobe pulmonary mass may be benign or malignant and could be further evaluated with PET scan
3). Multilevel lumbar degenerative disc disease with grade 1 spondylolisthesis of L4 on L5
A/P:
# SBO
CT scan showed dilated loops of bowel consistent with SBO with transition point identified in the central abdomen.
Prior h/o ROSSI / BSO - no other intra-abdominal surgeries. No prior h/o SBO.
NPO, IVFs, pain control and antiemetics.
NGT placed on 08/28 for decompression
Surgery on board
Follow for clinical improvement.
# Paroxysmal A-Fib, Stable.
Monitor on telemetry overnight.
IV Lopressor ATC and PRN for rate control while NPO.
Hold all PO meds - including Eliquis - acutely.
# Benign Hypertension, Stable.
Holding PO meds as noted above.
IV Lopressor while NPO.
# Incidental finding of left lower lobe pulmonary mass
Pt's POA informed of lung mass. POA asked to not inform the pt just yet. Informed POA about the importance of follow up outpatient.
DVT Prophylaxis: SCDs
Code Status: DNR
updated Piedad on the phone. Piedad is POA, she is not the daughter
Anticipated Discharge: > 48 hours
Subjective/Interval History
-
Date of Service: August 29, 2024
Objective Data
-
Labs:
Laboratory Results
08/29/24 08/29/24
04:04 06:00
WBC 7.3 Cancelled
Hgb 13.7 Cancelled
Hct 41.8 Cancelled
Plt Count 255 Cancelled
Sodium 143 Cancelled
Potassium 4.3 Cancelled
Chloride 102 Cancelled
Carbon Dioxide 28 Cancelled
BUN 23 H Cancelled
Creatinine 0.5 L Cancelled
Glucose 118 H Cancelled
Calcium 9.2 Cancelled
Vital Signs:
Vital Signs
Temp Pulse Resp BP Pulse Ox
36.9 C 116 17 136/84 98
08/29/24 07:05 08/29/24 07:05 08/29/24 07:05 08/29/24 07:05 08/29/24 07:05
I&O
08/28/24 08/29/24 08/30/24
07:59 06:59 06:59
Intake Total
Output Total
Balance
Review of Systems
-
Abdomen/GI: Reports Nausea and Vomiting; Denies Abdominal Pain
Physical Exam
-
General: Well Developed, Well Nourished, No Apparent Distress, Comfortable, Conversant and Appears Chronically Ill; Negative Respiratory Distress
HEENT: Normocephalic, Atraumatic, Nose Appears Normal and Ears Appear Normal
Respiratory: Clear to Auscultation and Non Labored Respirations; Negative Accessory Resp Muscle Use
Cardiac: Regular Rhythm and S1/S2
GI: Soft, Nondistended and Other (NGT); Negative Normal Bowel Sounds
Skin: Warm and Dry
Neuro: Awake, Alert, Oriented and AO x 3
Psych: Calm and Intact Judgement/Insight
Data Reviewed
-
CT Scan: Report Reviewed by me
Labs: Labs Reviewed by me
--- NOTE | 2024-08-29 11:29 | W.PN.GS2 ---
Today's Communication / Plan
-
continue NGT
abdominal xrays in AM
Assessment / Plan
-
84 yo female with h/o ROSSI/BSO and PAF on Eliquis (LD 10 am) who presented with nausea, vomiting and abdominal pain. Last BM was 5 days ago with development of abdominal pain with n/v yesterday causing her to present for evaluation. Not passing
flatus. CT imaging reviewed and consistent with adhesive SBO. Afebrile, no leukocytosis present.
NGT:
--Continue NGT given high output
--Analgesics/antiemetics prn
--Bowel rest; continue NPO
--Hold home Eliquis
--No plans for emergent surgery today.
--Abdominal xrays ordered for the AM
Subjective Data
-
Date of Service: August 29, 2024
Patient states she has been burping. She has no flatus or bowel movements. She has no pain.
Objective Data
-
Intake and Output
08/28/24 08/29/24 08/30/24
07:59 06:59 06:59
Intake Total
Output Total
Balance
Intake:
Oral fluids
IV fluids (Total)
Amount instilled into GI Tube (
Total)
[place] Sump
Output:
Emesis
Gastrointestinal tube output (
Total)
[place] Sump
Other:
Number of approximated MODERATE
amounts of urine
Number of approximated LARGE
amounts of urine
Vital Signs
Temp Pulse Resp BP Pulse Ox
98.1 F 111 16 156/87 97
08/29/24 11:00 08/29/24 11:00 08/29/24 11:00 08/29/24 11:00 08/29/24 11:00
Lab Results
08/29/24 06:00
08/29/24 06:00
Calcium Cancelled 08/29/24 06:00
Magnesium 2.5 mg/dl (1.6-2.3) H 08/29/24 04:04
Total Bilirubin 0.9 mg/dl (0.2-1.3) 08/26/24 22:34
AST 28 U/L (14-36) 08/26/24 22:34
ALT 22 U/L (0-35) 08/26/24 22:34
Alkaline Phosphatase 64 U/L (38-126) 08/26/24 22:34
Total Protein 7.2 g/dl (6.3-8.2) 08/26/24 22:34
Albumin 4.5 g/dl (3.5-5.0) 08/26/24 22:34
Physical Exam
-
General: Well Developed and Well Nourished
HEENT: Moist Mucous Membranes
Respiratory: Non Labored Respirations
GI: Soft, Tender (mild to mid abdomen into left side) and Distended (mild)
Skin: Warm
Neuro: Awake, Alert and AO x 3
Psych: Calm
[2024-08-29] MEDS: ZOFRAN 4 MG IV (20:14)
--- NOTE | 2024-08-29 22:46 | PTCARENOTE ---
patient's heart rate at rest is in low 100's to 120 BPM. Her heart rate has increased up to 150s periodically, PRN Lopressor dose given and pt asymptomatic denying any pain. will continue to monitor.
[2024-08-30] VITALS (7 sets, daily range): BP systolic 117–151; BP diastolic 66–88; BMI 22.1
[2024-08-30] MEDS: NSS 1000 IV (04:38)
[2024-08-30] MEDS: LOPRESSOR 5 MG IV ×5 (05:29→19:32)
[2024-08-30 06:06] LABS: % Basophils 0.5 % (0-2); % Eosinophils 0.9 % (0-6); % Immature Granulocytes 0.8 % (0-0.5); % Lymphocytes 15.8 % (20.5-51.1); % Monocytes 20.3 % (1.7-9.3); % Neutrophils 61.7 % (42.2-75.2); Absolute Eosinophils 0.1 10^3/uL (0-0.7); Absolute Immature Granulocytes 0.1 10^3/uL (0-0.05); Absolute Monocytes 1.3 10^3/uL (0.1-0.6); Hematocrit 46.7 % (37.0-47.0); Hemoglobin 15.6 g/dL (12.0-16.0); Mean Corp Hgb Conc. 33.4 g/dL (33.0-37.0); Mean Corpuscular Hgb 31.4 pg (27.0-31.0); Mean Platelet Volume 9.6 fL (7.4-10.4); Nucleated Red Blood Cells % 0 %; Platelet Count 267 10^3/uL (130-400); Red Blood Cell Count 4.97 10^6/uL (4.20-5.40); Red Cell Dist. Width 12.5 % (11.5-14.5); White Blood Cell Count 6.4 10^3/uL (4.8-10.8)
--- NOTE | 2024-08-30 08:45 | W.PN.HOSP.TC ---
Today's Communication/Plan
-
NPO. IV fluids. IV metoprolol. Surgery eval for SBO.
Assessment / Plan
Assessment / Plan
Physical exam:
General: Acutely ill
HEENT: Normocephalic, Atraumatic and Moist Mucous Membranes
Respiratory: Clear to Auscultation; Negative Wheezes, Rales or Rhonchi
Cardiac: Irregular rate and rhythm, tachycardic, and S1/S2
GI: Absent bowel sounds, soft, Nontender and Nondistended
Musculoskeletal: No Clubbing, No Cyanosis and No Edema
Neuro: Awake, Alert and Oriented
Psych: Calm
A/P:
84y F with PMH significant for A-Fib and hypertension who presented to ED complaining of abdominal pain with N/V. Patient states that she started with epigastric / upper abdominal discomfort the morning of admission.
Her symptoms persisted throughout the day despite Pepto Bismol, Gas-X, etc. Around 7:30 PM and after eating dinner, patient noted increase in her pain and development of N/V x 4 of non-bloody emesis.
The emesis did not improve her discomfort. Patient states that the pain does not radiate to the back, lower abdomen, etc.
Patient denies any prior history of similar episodes.
Patient states that she has not moved her bowels in > 5 days. She notes that she typically goes 'a few days' between bowel movements.
She also does not believe that she has passed flatus in a few days.
CT AP:
1). Small bowel obstruction
2). 2 cm left lower lobe pulmonary mass may be benign or malignant and could be further evaluated with PET scan
3). Multilevel lumbar degenerative disc disease with grade 1 spondylolisthesis of L4 on L5
A/P:
# SBO
CT scan showed dilated loops of bowel consistent with SBO with transition point identified in the central abdomen.
Prior h/o ROSSI / BSO - no other intra-abdominal surgeries. No prior h/o SBO.
NPO, IVFs, pain control and antiemetics.
NGT placed on 08/28 for decompression
Surgery on board
Plan to go to the OR for surgery. Defer to surgeon for timing.
# Persistent A-Fib with rapid ventricular response.
Continue to monitor on telemetry
IV Lopressor ATC and PRN for rate control while NPO.
Hold all PO meds - including Eliquis-she has not been taking this since at least August 27 since her admission.
#Preop eval
Surgery reached out to me about preop evaluation today on 08/30/2024. From my standpoint, patient can go for surgery as soon as today. Surgery insisted she may need more clearance for anesthesia to take her therefore I asked cardiology for
consultation. Discussed with cardiology today and from their standpoint they are also comfortable with her going to surgery and continue current regimen.
I asked for follow-up EKG stat and it shows A-fib/flutter with rates in the 113 range and no other acute abnormalities on my interpretation.
Electrolytes within decent levels and if needed can replace extra potassium.
Continue cardiac monitoring.
# Primary hypertension.
Holding PO meds as noted above.
IV Lopressor while NPO.
Continue to monitor.
# Incidental finding of left lower lobe pulmonary mass
Pt's POA informed of lung mass. POA asked to not inform the pt just yet. Informed POA about the importance of follow up outpatient.
DVT Prophylaxis: SCDs
Code Status: DNR
Total time spent on today's encounter was 52 minutes which included time spent in counseling the patient/family regarding diagnosis and treatment plan as listed above, goals of care, and symptom management. Case was discussed with nursing staff,
specialists, and care coordinators/case management. All labs and imaging personally reviewed by me. Remainder the time spent in detailed review of previous records, lab data, imaging, and other medical provider documentation.
Anticipated Discharge: > 48 hours
Subjective/Interval History
-
Date of Service: August 30, 2024
Patient has not had any bowel movement and has not passed any gas. Still in A-fib. No chest pain or shortness of breath.
Objective Data
-
Labs:
Laboratory Results
08/30/24 08/30/24
05:36 07:58
WBC 6.4
Hgb 15.6
Hct 46.7
Plt Count 267
Sodium Cancelled Pending
Potassium Cancelled Pending
Chloride Cancelled Pending
Carbon Dioxide Cancelled Pending
BUN Cancelled Pending
Creatinine Cancelled Pending
Glucose Cancelled Pending
Calcium Cancelled Pending
Vital Signs:
Vital Signs
Temp Pulse Resp BP Pulse Ox
97.3 F 132 20 144/86 96
08/30/24 07:33 08/30/24 08:07 08/30/24 07:33 08/30/24 08:07 08/30/24 07:33
I&O
08/29/24 08/30/24 08/31/24
06:59 06:59 06:59
Intake Total
Output Total 3050 / 3050
Balance -3050 / -3050
[2024-08-30 09:28] LABS: Blood Urea Nitrogen 23 mg/dl (7-17); Carbon Dioxide 35 mmol/L (22-30); Chloride 97 mmol/L (98-107); Estimated Creatinine Clearance 53 ml/min; Glucose 97 mg/dl (70-99); Magnesium 2.6 mg/dl (1.6-2.3); Potassium 3.6 mmol/L (3.5-5.1); Sodium 143 mmol/L (135-145); eGFR > 60.00
--- NOTE | 2024-08-30 09:57 | W.PN.GS2 ---
Addendum entered and electronically signed by Julius Lakhani MD 08/30/24 14:51:
I saw and examined the patient independently.
The Open Cut Examiner's note was reviewed and I agree with the note, assessment and plan except where noted below.
Comment: This is an 84-year-old female with a history of a ROSSI/BSO, A-fib on Eliquis last dose was 08/26 who presentes with nausea vomiting and abdominal pain, found to have a complete small bowel obstruction likely adhesive. She was initially
managed nonoperatively but worsened Friday so an NG tube was placed. It put out 3 L overnight.
This a.m. we got an x-ray to confirm NG tube placement which demonstrated no air-fluid levels and paucity of small bowel gas so we elected to do a small bowel follow-through to confirm obstruction. On my preliminary read it appears that she
continues to have a persistent SBO.
Will plan for a diagnostic lap, possible open lysis of adhesions tomorrow.
N.p.o., IV fluids, continue NG tube to low intermittent wall suction.
Hold anticoagulation
Risks/Benefits/Alternatives, expected postoperative course and possible complications (bleeding, infection, injury to surrounding structures, acute/chronic pain) discussed at length. Patient wishes to proceed with surgery. All questions answered.
I spent 65 minutes in total for the care of this patient today including direct patient care and counseling, reviewing labs, imaging, coordination of care, as well as documentation.
Original Note:
Today's Communication / Plan
-
check SBFT
Assessment / Plan
-
84 yo female with h/o ROSSI/BSO and PAF on Eliquis (LD 08/26 am) who presented with nausea, vomiting and abdominal pain. 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 Not passing
flatus. CT imaging reviewed and consistent with adhesive SBO.
NGT: >3L over the last 24h
XR without significant distention, however, patient with persistent obstruction
Afebrile
Significant tachycardia
--Continue NGT given high output
--Analgesics/antiemetics prn
--Bowel rest; continue NPO
--Hold home Eliquis
--Cardiac management as per primary team
--Plan SBFT imaging
May require operative management of this obstruction
Subjective Data
-
Date of Service: August 30, 2024
Patient seen and examined at bedside. Denies pain or nausea. Belching at times but not passing flatus.
Objective Data
-
Intake and Output
08/29/24 08/30/24 08/31/24
06:59 06:59 06:59
Intake Total 30 / 30
Output Total 3050 / 3050
Balance -3050 / -3050 30 / 30
Intake:
Oral fluids
IV fluids (Total)
Amount instilled into GI Tube ( 30 / 30
Total)
Millard Sump 30 / 30
Output:
Emesis
Gastrointestinal tube output ( 3050 / 3050
Total)
Millard Sump 3050 / 3050
Other:
Number of approximated SMALL 1
amounts of urine
Number of approximated MODERATE
amounts of urine
Number of approximated LARGE
amounts of urine
Vital Signs
Temp Pulse Resp BP Pulse Ox
97.3 F 132 20 144/86 96
08/30/24 07:33 08/30/24 08:07 08/30/24 07:33 08/30/24 08:07 08/30/24 07:33
Lab Results
08/30/24 05:36
08/30/24 07:58
Calcium 9.0 mg/dl (8.4-10.2) 08/30/24 07:58
Magnesium 2.6 mg/dl (1.6-2.3) H 08/30/24 07:58
Total Bilirubin 0.9 mg/dl (0.2-1.3) 08/26/24 22:34
AST 28 U/L (14-36) 08/26/24 22:34
ALT 22 U/L (0-35) 08/26/24 22:34
Alkaline Phosphatase 64 U/L (38-126) 08/26/24 22:34
Total Protein 7.2 g/dl (6.3-8.2) 08/26/24 22:34
Albumin 4.5 g/dl (3.5-5.0) 08/26/24 22:34
Physical Exam
-
NAD
ABD soft, NT, ND
NGT with bilious outputs
--- NOTE | 2024-08-30 10:40 | CM ---
Patient seen bedside.
Currently with NGT.
IA completed.
Patient lives alone, spouse a year ago, in a 2 story home with 1 MO.
patient independent prior to admission.
Patient does not drive.
No Hx VN or skilled rehab.
Patient friend (who is like a nephew) will transport home.
Patient denies home care needs at this time.
PCP: Dr Kahn
Pharmacy: [facility]
Plan: home no needs anticipated.
--- NOTE | 2024-08-30 10:44 | CON.CAR ---
Addendum entered and electronically signed by Ansley Palacios DO 08/30/24 17:50:
I saw and examined the patient.
The Coin Machine Service Repairer's note was reviewed and I agree with the note.
Comment: Patient was seen and examined this morning awaiting general surgery recommendations regarding possible surgery. Patient came to [facility] late last night with epigastric pain and was admitted with SBO and cardiology is now consulted for
pre-operative evaluation and persistent Afib. Patient didn't feel well for hours prior to coming to the ER last and complaining of pain and N/V. No h/o SBO, but patient found to have SBO and was admitted. NGT placed 08/28/24 with high
output, but no resolution of SBPO. Patient is awaiting the results of her SBFT and says that she has been told surgery is a possibility at this point. Patient denies chest pain or SOB. Patient has a h/o resting SOB when she feels anxious, but says
she is able to go on walks without chest pain or CARLSON. Patient also has a h/o palpitations and persistent Afib. Patient takes Toprol XL 100 mg in the AM and Cardizem CD 180 mg at night. There was an attempt at rhythm control in 10/2021, but within a
month of CV she reverted back to Afib and has been on a rate control strategy since then. Patient takes Eliquis 2.5 mg BID (age 84, Cre 0.6, wt 54.8 kg); last dose 08/26/2024. Last echo from 04/18/23 with preserved EF and only mild MR.
GEN: NAD. AAOx3
HEENT: EOMI, MMM
LUNGS: CTA B/L, no audible wheeze
CV: Afib on tele. Irreg irreg, S1/S2, 11/01 syst LSB
ABD: soft, BS+, NT, ND
EXT: No clubbing, cyanosis, lesions or edema B/L
NEURO: Gross non-focal
SKIN: Warm, dry and pink. No rash
Plan:
Small bowel obstruction for possible surgery later today
-General Surgery following. Patient is n.p.o. with NG tube placed 08/28/2024 with high output
-Awaiting small bowel follow-through results SBFT
-Surgery is intermediate risk and she is intermediate risk but stable and may proceed with surgery as planned. Last dose of Eliquis on admission 08/26/2024. Prior to this admission she was independent in her ADLs with functional capacity estimated
between 5-7 METS without cardiac symptoms. No reported complications with prior anesthesia.
-Recommend perioperative tele monitoring and transfuse to keep Hgb greater than 8.
History of persistent atrial fibrillation
-Asymptomatic relatively rate controlled atrial fibrillation
-Agree with IV Lopressor while NPO. [ Patient takes Toprol XL 100 mg in the AM and Cardizem CD 180 mg at night.]
-Holding anticoagulation
with anticipation that patient may need surgery later today.
-Resume Eliquis 2.5 mg BID acute SBO has resolved (age 84, Cre 0.6, wt 54.8 kg)
-Epigastric pain on admission with undetectable Troponin.
Discussed with hospitalist
Will follow with
Original Note:
Consultation
Consultation Request
Date/Time Consultation Requested: 08/30/24
Date/Time Consultation Performed: 08/30/24
Requesting Provider: Dr. Callejas
Performing Provider: Dr. Palacios
Reason for Consultation: Pre-operative risk stratification, paroxysmal Afib/flutter
Medical History
-
History of Present Illness:
Patient came to [facility] late last night with epigastric pain and was admitted with SBO and cardiology is now consulted for pre-operative evaluation and persistent Afib. Patient didn't feel well for hours prior to coming to the ER last
and complaining of pain and N/V. No h/o SBO, but patient found to have SBO and was admitted. NGT placed 08/28/24 with high output, but no resolution of SBPO. Patient is awaiting the results of her SBFT and says that she has been told surgery is a
possibility at this point. Patient denies chest pain or SOB. Patient has a h/o resting SOB when she feels anxious, but says she is able to go on walks without chest pain or CARLSON. Patient also has a h/o palpitations and persistent Afib. Patient takes
Toprol XL 100 mg in the AM and Cardizem CD 180 mg at night. There was an attempt at rhythm control in 10/2021, but within a month of CV she reverted back to Afib and has been on a rate control strategy since then. Patient takes Eliquis 2.5 mg BID
(age 84, Cre 0.6, wt 54.8 kg). Last echo from 04/18/23 with preserved EF and only mild MR.
PMH:
Persistent Afib
Chronic Eliquis OAC
HTN
h/o syncope
Mild MR/AI by echo 04/18/23
Past Medical History
Past Surgical History: Gynecological (AH-BSO) and Orthopedic
Social History
Tobacco: Non-Smoker
Alcohol: None
Drug: None
Personal: (in the last year or so)
Living: Alone
Family History
Family History: CAD and Cancer
Allergies / Home Medications
Allergy/AdvReac Type Severity Reaction Status Date / Time
iodine Allergy Unknown Verified 12/12/21 07:32
IV contrast Allergy red, Uncoded 12/12/21 07:32
itchy,
unable to
breathe
IVP dye Allergy red, Uncoded 12/12/21 07:32
itchy,
unable to
breathe
�Medication �Instructions �Recorded �Confirmed �Type
apixaban 2.5 mg tablet (Eliquis) 2.5 mg PO BID #60 tabs 09/21/19 08/27/24 Rx
acetaminophen 650 mg 1,300 mg PO Q12H Pain 08/27/24 08/27/24 History
tablet,extended release
cholecalciferol (vitamin D3) 25 25 mcg PO DAILY Supplement 08/27/24 08/27/24 History
mcg (1,000 unit) tablet (Vitamin
D3)
diltiazem HCl 180 mg capsule,24 180 mg PO QPM Heart 08/27/24 08/27/24 History
hr,extended release Disease/Condition
furosemide 20 mg tablet 20 mg PO DAILY Fluid 08/27/24 08/27/24 History
Retention/Swelling
metoprolol succinate 100 mg 100 mg PO DAILY Blood Pressure 08/27/24 08/27/24 History
tablet,extended release 24 hr
therapeutic multivitamin 1 tab PO DAILY Supplement 08/27/24 08/27/24 History
Review of Systems
-
History Source: Patient
All other systems: Negative unless noted
Physical Exam
Vital Signs
Temp Pulse Resp BP Pulse Ox
97.3 F 132 20 144/86 96
08/30/24 07:33 08/30/24 08:07 08/30/24 07:33 08/30/24 08:07 08/30/24 07:33
GEN: NAD. AAOx3
HEENT: EOMI, MMM
LUNGS: CTA B/L, no audible wheeze
CV: Afib on tele. Irreg irreg, S1/S2, 11/01 syst LSB
ABD: soft, BS+, NT, ND
EXT: No clubbing, cyanosis, lesions or edema B/L
NEURO: Gross non-focal
SKIN: Warm, dry and pink. No rash
Lab Results
08/30/24 05:36
08/30/24 07:58
Troponin I < 0.012 ng/ml 08/26/24 22:34
Impression / Plan
-
PCP: Dr. Kahn
Cardiology: Dr. Batista
Impression:
Admitted with SBO 08/27/24
Persistent Afib
Chronic Eliquis OAC
HTN
h/o syncope
Mild MR/AI by echo 04/18/23
Echo 04/18/23: EF 60 to 65%, mild MR, aortic sclerosis without stenosis and mild aortic regurgitation, mild TR with normal PAP
Plan:
-Patient came to [facility] late last night with epigastric pain and was admitted with SBO and cardiology is now consulted for pre-operative evaluation and persistent Afib. Patient didn't feel well for hours prior to coming to the ER last
and complaining of pain and N/V. No h/o SBO, but patient found to have SBO and was admitted. NGT placed 08/28/24 with high output, but no resolution of SBPO. Patient is awaiting the results of her SBFT and says that she has been told surgery
is a possibility at this point. Patient denies chest pain or SOB. Patient has a h/o resting SOB when she feels anxious, but says she is able to go on walks without chest pain or CARLSON. Patient also has a h/o palpitations and persistent Afib. Patient
takes Toprol XL 100 mg in the AM and Cardizem CD 180 mg at night. There was an attempt at rhythm control in 10/2021, but within a month of CV she reverted back to Afib and has been on a rate control strategy since then. Patient takes Eliquis 2.5 mg
BID (age 84, Cre 0.6, wt 54.8 kg). Last echo from 04/18/23 with preserved EF and only mild MR.
-Patient denies chest pain or SOB with walking. No resting symptoms currently.
-ECG 08/30/24 reviewed by me with Afib in RVR and nonspecific anterolateral T wave changes. Epigastric pain on admission with undetectable Troponin.
-Recommend perioperative tele monitoring and transfuse to keep Hgb greater than 8.
-Outpatient doses of Toprol XL 100 mg AM and Cardizem CD 180 mg PM are on hold while NPO. Will increase dose of Lopressor IV to 5 mg q 4 hours to help with HR and BP control.
-Outpatient dose of Eliquis 2.5 mg BID (age 84, Cre 0.6, wt 54.8 kg) has been on hold since admission. There is no h/o thromboembolic event. No need to bridge. Would like to resume Eliquis when stable from a surgical standpoint.
-Afib is persistent to permanent at this point and plan is for rate control.
--- NOTE | 2024-08-30 13:41 | PN.CDI ---
CDI
- -
CDI:
Physician Documentation Request
Admit Date: 08/27/24 03:33
Dear Doctor/CAPTAIN ROOM SERVICE,
Please review the following and provide your response in the progress notes.
Clinical Indicators:
Pt admitted with SBO likely 2/2 Adhesions
Progress note 08/30 , ' NGT: >3L over the last 24hXR without significant distention, however, patient with persistent obstruction ...'
Please provide the suspected extent of the documented SBO:
Partial
Complete
Other ( please specify)
Use of terms such as suspected, likely, concern for, or probable (associated with a specific diagnosis that is being evaluated, monitored, or treated as if it exists) are acceptable and can be coded in the inpatient setting, when documented at the
time of discharge.
Thank you,
Verito Rice RN
CDI Specialist
[facility]
Please use your independent medical judgment in providing your response.
[2024-08-30] MEDS: TYLENOL 650 MG PO (16:47)
--- NOTE | 2024-08-30 17:26 | W.PN.UPDATE ---
Update Note
Progress Note Update
Final upper small bowel follow-through series shows contrast has reached the colon indicating her obstruction has more or less resolved. Clinically the patient states that she is feeling less bloated and distended and is passing flatus and had a
small bowel movement.
We will keep the NG tube in for now, and we will plan for an x-ray in the morning.
If the patient clinically continues to improve we will pull the NG tube and start clear liquid diet.
I discussed with the patient that she may still need lysis of adhesions either this admission if she fails to progress or in the near future if she has a recurrence of her small bowel obstruction but for now it appears we will be able to continue
with nonoperative management of the small bowel obstruction. All questions answered, patient agreeable to plan of care above.
--- NOTE | 2024-08-30 21:15 | PTCARENOTE ---
Pt telemetry alarming for HR 230 at 2111. This RN checked on pt and found she was using the bedside commode with assistance from PCT. Pt was assisted back to bed where she had 2 episodes of vomiting and 1 large liquid bowel movement. CHAMP, Brandi
Amrita, contacted and evaluated pt. Lopressor scheduled dose given at 1935. PYTHON PROGRAMMER advised this RN to continue to monitor and administer PRN Lopressor dose if elevated HR persists. PRN zofran dose given. Pt HR returned to her baseline of 115
shortly after returning to bed and the vomiting stopped. Will continue to monitor and administer PRN Lopressor as needed.
[2024-08-30] MEDS: ZOFRAN 4 MG IV (21:25)
--- NOTE | 2024-08-30 21:37 | W.PN.UPDATE ---
Update Note
Progress Note Update
-Reported by the nursing staff that the patient hr is 230.
-On assessment, patient was out of bed using BSC and just back to bed dry heaving. This provider advised the nurse to give PRN antiemetics. Hr back in 90s after receiving Zofran. Denied chest or SOB. -Patient was seen by cardiology this am. Per
cardiology note, patient on oral Cardizem at home but currently on hold due SBO/NPO. Lopressor dose was increased by puncher to 5mg IV q 4hrs as needed for hr control.
-Currently hr back to base line, will monitor and give Lopressor PRN as needed for elevated hr.
-Hypokalemic this am with K level 3.3 replated as needed .
[2024-08-31] MEDS: LOPRESSOR 5 MG IV ×4 (00:16→10:01)
[2024-08-31] MEDS: NSS 1000 IV ×3 (00:33→23:09)
[2024-08-31 03:30] VITALS: BP 135/90
[2024-08-31 05:53] LABS: % Basophils 0.6 % (0-2); % Eosinophils 1.2 % (0-6); % Immature Granulocytes 0.6 % (0-0.5); % Lymphocytes 12.3 % (20.5-51.1); % Monocytes 17.2 % (1.7-9.3); % Neutrophils 68.1 % (42.2-75.2); Absolute Eosinophils 0.1 10^3/uL (0-0.7); Absolute Lymphocytes 0.8 10^3/uL (1.2-3.4); Absolute Monocytes 1.2 10^3/uL (0.1-0.6); Absolute Neutrophils 4.6 10^3/uL (1.4-6.5); Hematocrit 43.6 % (37.0-47.0); Mean Corp Hgb Conc. 32.1 g/dL (33.0-37.0); Mean Corpuscular Hgb 31.5 pg (27.0-31.0); Mean Platelet Volume 9.7 fL (7.4-10.4); Nucleated Red Blood Cells % 0 %; Platelet Count 251 10^3/uL (130-400); Red Blood Cell Count 4.45 10^6/uL (4.20-5.40); Red Cell Dist. Width 12.1 % (11.5-14.5); White Blood Cell Count 6.7 10^3/uL (4.8-10.8)
[2024-08-31 06:00] VITALS: BMI 22.1
[2024-08-31 06:02] LABS: Blood Urea Nitrogen 24 mg/dl (7-17); Calcium 8.1 mg/dl (8.4-10.2); Carbon Dioxide 33 mmol/L (22-30); Chloride 100 mmol/L (98-107); Estimated Creatinine Clearance 53 ml/min; Glucose 92 mg/dl (70-99); Magnesium 2.4 mg/dl (1.6-2.3); Potassium 3.3 mmol/L (3.5-5.1); Sodium 144 mmol/L (135-145); eGFR > 60.00
[2024-08-31] MEDS: KCL 270 MEQ IV (06:38)
[2024-08-31 07:30] VITALS: BP 153/43
--- NOTE | 2024-08-31 07:41 | W.PN.GS2 ---
Today's Communication / Plan
-
-- No plans for surgery at this time
-- X-ray abdomen
-- NGT clamp trial
-- Replete lytes, IVF resuscitation
-- DVT: Lovenox, immobility with NGT and off home anticoagulation
-- GI: PPI given NGT
-- OOB/ambulate
Assessment / Plan
-
Patient is a 84 yo F with h/o ROSSI/BSO and PAF on Eliquis (LD 10 am) p/w SBO
NGT: outputs significantly decreased over past 24 hours
XR without significant distention
SBFT with mild SB dilation, contrast progression to colon
Afebrile
Significant tachycardia, likely component of dehydration from GI losses with limited IVF
Clinically and radiographically improved. Plan for repeat abdominal x-ray today to monitor contrast progression and assess SB dilation. NGT clamp trial with tentative plan for removal this afternoon. Repeat electrolytes and IV fluid resuscitation
per hospitalist.
-- No plans for surgery at this time
-- X-ray abdomen
-- NGT clamp trial
-- Analgesics/antiemetics prn
-- Continue to hold home Eliquis
-- Replete lytes, IVF resuscitation
-- Cardiac management as per primary team
-- DVT: Lovenox, immobility with NGT and off home anticoagulation
-- GI: PPI given NGT
-- OOB/ambulate
Subjective Data
-
Date of Service: August 31, 2024
No complaints. Pain well-controlled. No nausea or vomiting. Afebrile. Reports passing flatus and loose nonbloody stool overnight. Patient reports sipping large amounts of water around NG tube over the past several days.
Objective Data
-
Intake and Output
08/30/24 08/31/24 09/01/24
06:59 06:59 06:59
Intake Total 270 / 270
Output Total 3050 / 3050 1200 / 1200
Balance -3050 / -3050 -930 / -930
Intake:
Oral fluids 240 / 240
Amount instilled into GI Tube (
Total)
Leake Sump
Output:
Gastrointestinal tube output ( 3050 / 3050 1200 / 1200
Total)
Leake Sump 3050 / 3050 1200 / 1200
Other:
Number of approximated SMALL 1
amounts of urine
Number of approximated MODERATE 1
amounts of urine
How many times incontinent 1
MODERATE amount urine
Vital Signs
Temp Pulse Resp BP Pulse Ox
98.3 F 114 16 153/43 98
08/31/24 07:30 08/31/24 07:30 08/31/24 07:30 08/31/24 07:30 08/31/24 07:30
Lab Results
08/31/24 05:20
08/31/24 05:20
Calcium 8.1 mg/dl (8.4-10.2) L 08/31/24 05:20
Magnesium 2.4 mg/dl (1.6-2.3) H 08/31/24 05:20
Total Bilirubin 0.9 mg/dl (0.2-1.3) 08/26/24 22:34
AST 28 U/L (14-36) 08/26/24 22:34
ALT 22 U/L (0-35) 08/26/24 22:34
Alkaline Phosphatase 64 U/L (38-126) 08/26/24 22:34
Total Protein 7.2 g/dl (6.3-8.2) 08/26/24 22:34
Albumin 4.5 g/dl (3.5-5.0) 08/26/24 22:34
Physical Exam
-
Gen: NAD
HEENT: NGT with clear outputs
Abd: soft, NT, mild distension, non-peritoneal
--- NOTE | 2024-08-31 08:23 | W.PN.HOSP.TC ---
Addendum entered and electronically signed by Abe Callejas MD 08/31/24 11:23:
tried call poa but no answer
Original Note:
Today's Communication/Plan
-
IV fluids NG tube. IV Cardizem drip
Assessment / Plan
Assessment / Plan
Physical exam:
General: Acutely ill
HEENT: Normocephalic, Atraumatic and Moist Mucous Membranes
Respiratory: Clear to Auscultation; Negative Wheezes, Rales or Rhonchi
Cardiac: Irregular rate and rhythm, tachycardic, and S1/S2
GI: Present bowel sounds although hypoactive, soft, Nontender and Nondistended
Musculoskeletal: No Clubbing, No Cyanosis and No Edema
Neuro: Awake, Alert and Oriented
Psych: Calm
A/P:
Small bowel obstruction:
Improving
Continue n.p.o. NG tube IV fluid and possible NG tube clamp trial
SBFT favorable result
Appreciated surgery following
No surgery indicated at the moment but continue to follow-up clinically
Persistent A-fib RVR:
Change IV Lopressor to IV Cardizem drip and continue Lopressor IV as needed
Plan to transition to oral when able to take oral intake
Off anticoagulation-resume when cleared by surgery
Appreciated cardiology follow-up
Hypokalemia:
Replete and trend
Lung mass/nodule:
Will get pulmonary to see her for appropriate coordination
Hypertension:
Continue current medications and monitor blood pressure
GERD:
Continue PPI
DVT prophylaxis:
Lovenox SQ
CODE STATUS:
DNR
Anticipated Discharge: 24 - 48 hours
Subjective/Interval History
-
Date of Service: August 31, 2024
Patient passing gases today. No bowel movement. No chest pain or shortness of breath.
Objective Data
-
Labs:
Laboratory Results
08/31/24
05:20
WBC 6.7
Hgb 14.0
Hct 43.6
Plt Count 251
Sodium 144
Potassium 3.3 L
Chloride 100
Carbon Dioxide 33 H
BUN 24 H
Creatinine 0.6
Glucose 92
Calcium 8.1 L
Vital Signs:
Vital Signs
Temp Pulse Resp BP Pulse Ox
98.3 F 114 16 153/43 98
08/31/24 07:30 08/31/24 07:30 08/31/24 07:30 08/31/24 07:30 08/31/24 07:30
I&O
08/30/24 08/31/24 09/01/24
06:59 06:59 06:59
Intake Total 270 / 270
Output Total 3050 / 3050 1200 / 1200
Balance -3050 / -3050 -930 / -930
[2024-08-31] MEDS: PROTONIX IV 40 MG IV (08:42)
--- NOTE | 2024-08-31 10:26 | W.PN.CARDCBS ---
Addendum entered and electronically signed by Abdullahi Han MD 08/31/24 15:01:
I saw and examined the patient.
The Medicare Coordinator's note was reviewed and I agree with the note.
Comment: Briefly, 84-year-old woman past medical history of atrial fibrillation who is presenting with small bowel obstruction which is currently being managed conservatively with NG tube in place
Heart rates have been elevated in atrial fibrillation despite IV metoprolol
Will transition to IV diltiazem drip for better heart rate control, goal less than 110 bpm
Can utilize as needed IV metoprolol
Eliquis on hold, can resume when taking p.o. if no surgical intervention is planned
Original Note:
Today's Communication / Plan
-
transition IV lopressor to IV cardizem gtt for improved HR control
continue IV lopressor PRN
transition to po regimen when able to take po
resume eliquis when ok from surgical standpoint
Impression / Plan
-
PCP: Dr. Kahn
Cardiology: Dr. Batista
Impression:
Admitted with SBO 08/27/24
Persistent Afib, with RVR
Chronic Eliquis OAC
HTN
h/o syncope
Mild MR/AI by echo 04/18/23
Echo 04/18/23: EF 60 to 65%, mild MR, aortic sclerosis without stenosis and mild aortic regurgitation, mild TR with normal PAP
Plan:
-she has persistent afib with rate control strategy. HRs remain consistently elevated on review of tele overnight on IV lopressor. she has been requiring multiple PRN lopressor doses daily. will plan to transition to IV cardizem gtt while NPO and
follow. prior to admission was taking toprol 100mg QAM and cardizem cd 180mg QPM
-remains with NGT in place. plan to clamp tube at 1200 and follow. had BM this AM. attempting to manage SBO conservatively at present, however may require OR for ANN at some point in future
-eliquis 2.5mg BID on hold since admission. resume when ok from surgical standpoint
-d/w nursing
PREADMIT DATA:
-Patient came to [facility] late last night with epigastric pain and was admitted with SBO and cardiology is now consulted for pre-operative evaluation and persistent Afib. Patient didn't feel well for hours prior to coming to the ER last
and complaining of pain and N/V. No h/o SBO, but patient found to have SBO and was admitted. NGT placed 08/28/24 with high output, but no resolution of SBPO. Patient is awaiting the results of her SBFT and says that she has been told surgery
is a possibility at this point. Patient denies chest pain or SOB. Patient has a h/o resting SOB when she feels anxious, but says she is able to go on walks without chest pain or CARLSON. Patient also has a h/o palpitations and persistent Afib. Patient
takes Toprol XL 100 mg in the AM and Cardizem CD 180 mg at night. There was an attempt at rhythm control in 10/2021, but within a month of CV she reverted back to Afib and has been on a rate control strategy since then. Patient takes Eliquis 2.5 mg
BID (age 84, Cre 0.6, wt 54.8 kg). Last echo from 04/18/23 with preserved EF and only mild MR.
Progress Note - [facility]
Subjective
Date of Service: August 31, 2024
no CP, SOB, palpitations, N/V.
Objective
Labs:
08/31/24 05:20
08/31/24 05:20
Labs
Hgb 14.0 g/dL (12.0-16.0) 08/31/24 05:20
Hct 43.6 % (37.0-47.0) 08/31/24 05:20
Plt Count 251 10^3/uL (130-400) 08/31/24 05:20
Sodium 144 mmol/L (135-145) 08/31/24 05:20
Potassium 3.3 mmol/L (3.5-5.1) L 08/31/24 05:20
BUN 24 mg/dl (7-17) H 08/31/24 05:20
Creatinine 0.6 mg/dL (0.6-1.0) 08/31/24 05:20
Glucose 92 mg/dl (70-99) 08/31/24 05:20
Vital Signs and I&O:
Vital Signs
Temp Pulse Resp BP Pulse Ox
98.3 F 114 16 153/43 98
08/31/24 07:30 08/31/24 07:30 08/31/24 07:30 08/31/24 07:30 08/31/24 07:30
Vital Signs
Temp Pulse Resp BP Pulse Ox
98.3 F 114 16 153/43 98
08/31/24 07:30 08/31/24 07:30 08/31/24 07:30 08/31/24 07:30 08/31/24 07:30
Intake & Output
08/29/24 08/30/24 08/31/24 09/01/24
07:59 07:59 07:59 07:59
Intake Total 270 / 270
Output Total 3050 / 3050 1200 / 1200
Balance -3050 / -3050 -930 / -930
Physical Exam
Physical Exam
GEN: No distress, awake, alert, oriented x3. on supp O2
HEENT: supple, anicteric, mmm, eomi. NGT in place
LUNGS: CTA B/L, no wheezes/rales
CV: Irreg irreg, S1/S2, no murmur
ABD: soft, BS+, NT/ND
EXT: No cyanosis, clubbing, edema
NEURO: Gross non-focal
SKIN: Warm, pink, dry. No rash
[2024-08-31] MEDS: NSS (PRESERVATIVE FREE) IV (10:32)
[2024-08-31] MEDS: CARDIZEM 125 IV (11:02)
[2024-08-31] MEDS: ANESTHETIC LOZENGE 1 LOZENGE PO (11:04)
--- NOTE | 2024-08-31 11:26 | CON.PUL ---
Consultation
Consultation Request
Date/Time Consultation Requested: 08/31/2024 - 1102
Date/Time Consultation Performed: 08/31/2024 - 1121
Requesting Provider: Dr. Callejas
Performing Provider: Dr. Alonso
Reason for Consultation: lung nodule
Medical History
-
Chief Complaint: Abdominal pain + nausea/vomiting
History of Present Illness:
84-year-old female with past medical history of of A-fib on Eliquis, chronic HFpEF, hyperlipidemia, hypertension, osteoporosis, anxiety, lumbar back pain, history of mild MR, history of PVCs, GERD and history of colon polyps who presents with upper
abdominal pain with nausea/vomiting since noon prior to arrival. She had taken Pepto-Bismol, Gas-X with minimal improvement of her symptoms. 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 She says she has not moved her bowels in
>5 days and she usually goes every few days between bowel movements. She also initially said she had not passed flatus in a few days either. Initially in the ER she was afebrile to 98 �F, pulse rate 119, breathing at 18 breaths/minute, BP 177/88
and saturating 94% on room air. Labs showed normal WBC at 10.4, Hb 14.9, serum bicarbonate level 32, chloride 96, glucose 129, calcium 10.3, troponin negative at <0.012, and lipase 72. Initial CT abdomen/pelvis showed evidence for small bowel
obstruction with a 2 cm left lower lobe pulmonary mass. She was admitted to telemetry under the hospitalist with general surgery consulted. NG tube was placed on 08/28 with high output and surgery was considering surgical treatment. Cardiology was
consulted given her history of persistent A-fib. She improved small bowel study on 08/30/24 showing dilated small bowel with flow of contrast into the colon. Surgery no longer offering surgery. Pulmonary service consulted due to enlarging left
lower lobe nodule.
When I saw the patient she was resting in bed in no acute distress on 1 L/min nasal cannula. Also on Cardizem drip at 5 mg/h. She is breathing well, denies shortness of breath or cough. She is normally an active woman, lives alone as her
last year. She is not reporting any unintentional weight loss, or night sweats or coughing up blood. We discussed her CT chest imaging and the fact that her left lower lobe nodule has been growing over the last 12 years which is
concerning for malignancy. I answered all of her questions. She currently denies RAMACHANDRAN, chest pain, diarrhea, fevers or chills.
PMHx: A-fib on Eliquis, chronic HFpEF, hyperlipidemia, congenital mitral valve prolapse, hypercholesterolemia, hypertension, postmenopausal osteoporosis, anxiety, lumbar back pain, history of broken left ankle, history of mitral regurgitation
(mild), history of PVCs, GERD, history of colonic polyps/tubular adenoma
PSHx: ROSSI/BSO (10/2013), cataract lens implants (01/2016), elbow surgery, left elbow surgery, Lezama neuroma foot surgery (03/2011), bilateral cataract surgery (09/2014)
Past Medical History
Past Medical History: Other (Above as per HPI)
Past Surgical History: Other (Above as per HPI)
Social History
Tobacco: Non-smoker
Alcohol: None
Drug: None
Personal:
Living: Alone
Family History
Family History: CAD (Father with a history of an AR), Cancer (Mother: Lung cancer), Hypertension (Sibling) and Other (Mother: Osteoporosis)
Allergies / Home Medications
Allergies
Allergy/AdvReac Type Severity Reaction Status Date / Time
iodine Allergy Unknown Verified 12/12/21 07:32
IV contrast Allergy red, Uncoded 12/12/21 07:32
itchy,
unable to
breathe
IVP dye Allergy red, Uncoded 12/12/21 07:32
itchy,
unable to
breathe
Home Medications
�Medication �Instructions �Recorded �Confirmed �Last Taken �Type
apixaban 2.5 mg tablet (Eliquis) 2.5 mg PO BID #60 tabs 09/21/19 08/27/24 12/11/21 20:00 Rx
acetaminophen 650 mg 1,300 mg PO Q12H Pain 08/27/24 08/27/24 08/26/24 History
tablet,extended release
cholecalciferol (vitamin D3) 25 25 mcg PO DAILY Supplement 08/27/24 08/27/24 08/26/24 History
mcg (1,000 unit) tablet (Vitamin
D3)
diltiazem HCl 180 mg capsule,24 180 mg PO QPM Heart 08/27/24 08/27/24 Unknown History
hr,extended release Disease/Condition
furosemide 20 mg tablet 20 mg PO DAILY Fluid 08/27/24 08/27/24 Unknown History
Retention/Swelling
metoprolol succinate 100 mg 100 mg PO DAILY Blood Pressure 08/27/24 08/27/24 Unknown History
tablet,extended release 24 hr
therapeutic multivitamin 1 tab PO DAILY Supplement 08/27/24 08/27/24 08/26/24 History
Review of Systems
-
History Source: Patient
All other systems: Negative unless noted
Vitals / Labs / Diagnostic Testing
Vital Signs
Temp Pulse Resp BP Pulse Ox
98.3 F 114 16 153/43 98
08/31/24 07:30 08/31/24 07:30 08/31/24 07:30 08/31/24 07:30 08/31/24 07:30
Lab Data
08/31/24 05:20
08/31/24 05:20
Diagnostic Testing:
Physical Exam
-
HEENT: Normocephalic and Anicteric
Cardiovascular: Irregular Rhythm (Irregularly irregular), Peripheral Edema (negative) and Other (Tachycardic)
Respiratory: Wheeze (negative), Rales (Bibasilar (L >R)), Rhonchi (negative) and Non-Labored Respirations
GI: Soft, Non Distended, Non Tender and Normal Bowel Sounds
Neurology: AO x 3 and Tremors (negative)
Skin: Warm and Dry
General: Respiratory Distress (negative), Comfortable, Fever (negative) and Chills (negative)
Assessment
-
Assessment: 84-year-old female with past medical history of of A-fib on Eliquis, chronic HFpEF, hyperlipidemia, hypertension, osteoporosis, anxiety, lumbar back pain, history of mild MR, history of PVCs, GERD and history of colon polyps who
presents with upper abdominal pain with nausea/vomiting since noon prior to arrival. She had taken Pepto-Bismol, Gas-X with minimal improvement of her symptoms. 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 She says she has not
moved her bowels in >5 days and she usually goes every few days between bowel movements. She also initially said she had not passed flatus in a few days either. Initially in the ER she was afebrile to 98 �F, pulse rate 119, breathing at 18
breaths/minute, BP 177/88 and saturating 94% on room air. Labs showed normal WBC at 10.4, Hb 14.9, serum bicarbonate level 32, chloride 96, glucose 129, calcium 10.3, troponin negative at <0.012, and lipase 72. Initial CT abdomen/pelvis showed
evidence for small bowel obstruction with a 2 cm left lower lobe pulmonary mass. She was admitted to telemetry under the hospitalist with general surgery consulted. NG tube was placed on 08/28 with high output and surgery was considering surgical
treatment. Cardiology was consulted given her history of persistent A-fib. She improved small bowel study on 08/30/24 showing dilated small bowel with flow of contrast into the colon. Surgery no longer offering surgery. Pulmonary service
consulted due to enlarging left lower lobe nodule.
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
regurgitation (mild), history of PVCs, GERD, history of colonic polyps/tubular adenoma
Impression:
#Lateral left lower lobe 2 cm nodule
#Acute hypoxic respiratory failure on supplemental oxygen - likely due to hypoventilation with physical deconditioning
#Small bowel obstruction
#A-fib with RVR on cardizem gtt
#Hypokalemia
#Metabolic alkalosis likely due to contraction alkalosis with recent nausea/vomiting and reduced PO intake in setting of SBO s/p NGT
#Chronic HFpEF
#Valvular heart disease with mild MR, mild AI and mild TR with normal PASP via TTE from 04/18/2023
#History of postmenopausal osteoporosis
#Anxiety
#GERD
#History of colon polyps/tubular adenoma
Plan:
- Patient has a 2 cm nodule in the costophrenic sulcus of her left lower lobe
- I personally reviewed her prior CT chest from May 2012 and at that time she had a nodule in that same location which measured 7 mm
- Given that this nodule has grown from 7 mm to now 20 mm in the same location over a 12 year period, this is concerning for malignancy
- Would recommend checking a CT chest to assess the remainder of the lung parenchyma for any additional nodules or lymphadenopathy
- Based on imaging and patient's goals of care, can offer biopsy which depending on imaging results could be done via robotic bronchoscopy or IR CT-guided core needle biopsy
- Given patient's age and DNR status, will need to first address goals of care as if the patient is not willing to undergo treatment (i.e. surgery, radiation or systemic treatment with chemotherapy/immunotherapy), then there is little utility in
performing a biopsy as the risks outweigh the benefits
- I discussed the abnormal CT chest findings with growing nodule since 2011 with the patient, and she said that she would not be interested in obtaining treatment for a cancer if she were to be diagnosed with it - she would not want radiation,
surgery or chemo-/immuno-therapy. She asked me to contact her adopted nephew, Salty, and I called his number provided in [employer] 2x with no answer --> v/m left for him detailing him to call us back, and I will try him again tomorrow to make him
aware of the situation and get his input.
- Maintain SpO2 >90-94% with supplemental O2 and wean as tolerated
- PT/OT
- Incentive spirometer encouraged 10x per hour for at least 4 hrs a day
- Check an ambulatory pulse oximetry prior to discharge
- prn nebulized bronchodilators - pt not currently bronchospastic
- Continue with cardizem gtt with goal HR<110
- Replete K>4, Mg>2
- Cardiology following and recs appreciated
- NGT has now been removed and she has bowel sounds with soft abdomen, and is starting clear liquids per surgery
- Would resume her metoprolol + Cardizem with holding parameters in an attempt to wean off the Cardizem drip
- Of note, small bowel study performed on 08/30/2024 showed dilated small bowel loops with no obstruction to the level of the colon, which is encouraging
- Maintain euglycemia with goal BG >100 and <180
- DVT ppx: LMWH
Pulmonary service will continue to follow along.
Data:
CT abdomen/pelvis without contrast 08/27/2024:
1). Small bowel obstruction
2). 2 cm left lower lobe pulmonary mass may be benign or malignant and could be further evaluated with PET scan
3). Multilevel lumbar degenerative disc disease with grade 1 spondylolisthesis of L4 on L5
Total time spent today was 56 minutes for this encounter. Time includes reviewing laboratory test/imaging results, reviewing pertinent medical records, obtaining and reviewing medical history, performing an appropriate exam, ordering medications,
tests and procedures. Time also includes documentation of this encounter, coordinating patient care and communicating with other healthcare professionals. Total time does not include separately billed tests performed on this date of service.
[2024-08-31 15:00] VITALS: BP 130/71
[2024-08-31] MEDS: LOPRESSOR PO (16:02)
[2024-08-31] MEDS: LOPRESSOR 50 MG PO ×2 (16:13→21:07)
[2024-08-31] MEDS: LOVENOX 40 MG SC (17:51)
[2024-08-31 19:15] VITALS: BP 129/68
[2024-08-31] MEDS: CARDIZEM CD 180 MG PO (21:00)
--- NOTE | 2024-08-31 21:39 | PTCARENOTE ---
This RN entered Pt room during med pass, pt. was laying down in bed SOB, tachypneic, and complaining of chest palpitations. VS taken BP 141/89, O2 89, HR 140s, RR 24. Pt placed on 2L O2, and O2 came up to 95%. Pt HR came back down to baseline of
115-120. CHAMP Doe notified and came up to evaluate pt. Pt. now asymptomatic and resting comfortably in bed. KILN DRAWER advised this RN to give PRN lopressor dose if elevated HR continues. Will continue to monitor, VSS.
[2024-08-31 23:09] VITALS: BP 115/75
[2024-09-01 03:12] VITALS: BP 121/66
[2024-09-01 06:00] VITALS: BMI 23.1
[2024-09-01 06:43] LABS: Hematocrit 40.9 % (37.0-47.0); Hemoglobin 13.1 g/dL (12.0-16.0); Mean Corpuscular Hgb 31.3 pg (27.0-31.0); Mean Corpuscular Volume 97.8 fL (81.0-99.0); Mean Platelet Volume 9.5 fL (7.4-10.4); Platelet Count 234 10^3/uL (130-400); Red Blood Cell Count 4.18 10^6/uL (4.20-5.40); Red Cell Dist. Width 12.4 % (11.5-14.5); White Blood Cell Count 6.1 10^3/uL (4.8-10.8)
[2024-09-01 07:33] LABS: Blood Urea Nitrogen 15 mg/dl (7-17); Calcium 7.6 mg/dl (8.4-10.2); Carbon Dioxide 31 mmol/L (22-30); Chloride 104 mmol/L (98-107); Estimated Creatinine Clearance 53 ml/min; Glucose 96 mg/dl (70-99); Magnesium 2.3 mg/dl (1.6-2.3); Potassium 3.6 mmol/L (3.5-5.1); Sodium 143 mmol/L (135-145); eGFR > 60.00
[2024-09-01 07:36] VITALS: BP 137/77
[2024-09-01] MEDS: NSS (PRESERVATIVE FREE) 10 ML IV (08:04)
[2024-09-01] MEDS: LOPRESSOR 50 MG PO (08:04)
[2024-09-01] MEDS: PROTONIX IV 40 MG IV (08:04)
--- NOTE | 2024-09-01 08:26 | W.PN.HOSP.TC ---
Today's Communication/Plan
-
Discharge planning today
Assessment / Plan
Assessment / Plan
Physical exam:
General: No acute distress
HEENT: Normocephalic, Atraumatic and Moist Mucous Membranes
Respiratory: Clear to Auscultation; Negative Wheezes, Rales or Rhonchi
Cardiac: Irregular rate and rhythm, and S1/S2
GI: Present bowel sounds normal, soft, Nontender and Nondistended
Musculoskeletal: No Clubbing, No Cyanosis and No Edema
Neuro: Awake, Alert and Oriented
Psych: Calm
A/P:
Small bowel obstruction:
Improving
Patient tolerated low residue diet today
Appreciated surgery following
No surgery indicated
Plan to discharge home today
Persistent A-fib RVR:
On her rate control agents and beta-mckay has been increased by cardiology.
Back to anticoagulant Eliquis
Appreciated cardiology follow-up
Hypokalemia:
Replete and trend
Lung mass/nodule:
Patient declined further workup but will follow-up with pulmonary as outpatient
Hypertension:
Continue current medications and monitor blood pressure
GERD:
Continue PPI
DVT prophylaxis:
Lovenox SQ
CODE STATUS:
DNR
Anticipated Discharge: Today
Subjective/Interval History
-
Date of Service: September 01, 2024
Patient having bowel movement since yesterday. No chest pain or shortness of breath.
Objective Data
-
Labs:
Laboratory Results
09/01/24
06:29
WBC 6.1
Hgb 13.1
Hct 40.9
Plt Count 234
Sodium 143
Potassium 3.6
Chloride 104
Carbon Dioxide 31 H
BUN 15
Creatinine 0.5 L
Glucose 96
Calcium 7.6 L
Vital Signs:
Vital Signs
Temp Pulse Resp BP Pulse Ox
97.6 F 111 17 137/77 97
09/01/24 07:36 09/01/24 07:36 09/01/24 07:36 09/01/24 07:36 09/01/24 07:36
I&O
08/31/24 09/01/24 09/02/24
06:59 06:59 06:59
Intake Total 270 / 270 1120 / 1120
Output Total 1200 / 1200
Balance -930 / -930 1120 / 1120
[2024-09-01] MEDS: KCL ELIXIR 40 MEQ PO (09:04)
--- NOTE | 2024-09-01 09:11 | W.PN.PUL3 ---
Today's Communication / Plan
-
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
Outpatient follow-up will be arranged in case patient decides to get biopsy at that time or changes her mind regarding treatment
Defer recent SBO management to hospitalist + surgery
Patient likely being discharged today
Please check ambulatory pulse oximetry prior to discharge
Wean down supplemental O2, keeping SpO2 >90-94%
No additional pulmonary recommendations at this time. Outpatient follow-up with me will be arranged. Pulmonary service will now sign off. Please reconsult if there are any additional questions/concerns, or if patient's respiratory status
deteriorates.
Assessment
-
Assessment: 84-year-old female with past medical history of of A-fib on Eliquis, chronic HFpEF, hyperlipidemia, hypertension, osteoporosis, anxiety, lumbar back pain, history of mild MR, history of PVCs, GERD and history of colon polyps who
presents with upper abdominal pain with nausea/vomiting since noon prior to arrival. She had taken Pepto-Bismol, Gas-X with minimal improvement of her symptoms. Pain worsened after having dinner REPORTER with nonbloody emesis x 4. She says she has not
moved her bowels in >5 days and she usually goes every few days between bowel movements. She also initially said she had not passed flatus in a few days either. Initially in the ER she was afebrile to 98 �F, pulse rate 119, breathing at 18
breaths/minute, BP 177/88 and saturating 94% on room air. Labs showed normal WBC at 10.4, Hb 14.9, serum bicarbonate level 32, chloride 96, glucose 129, calcium 10.3, troponin negative at <0.012, and lipase 72. Initial CT abdomen/pelvis showed
evidence for small bowel obstruction with a 2 cm left lower lobe pulmonary mass. She was admitted to telemetry under the hospitalist with general surgery consulted. NG tube was placed on 08/28 with high output and surgery was considering surgical
treatment. Cardiology was consulted given her history of persistent A-fib. She improved small bowel study on 08/30/24 showing dilated small bowel with flow of contrast into the colon. Surgery no longer offering surgery. Pulmonary service
consulted due to enlarging left lower lobe nodule.
Chronic conditions REPORTER: A-fib on Eliquis, chronic HFpEF, hyperlipidemia, congenital mitral valve prolapse, hypercholesterolemia, hypertension, postmenopausal osteoporosis, anxiety, lumbar back pain, history of broken left ankle, history of mitral
regurgitation (mild), history of PVCs, GERD, history of colonic polyps/tubular adenoma
Impression:
#Lateral left lower lobe 2 cm nodule
#Acute hypoxic respiratory failure on supplemental oxygen - likely due to hypoventilation with physical deconditioning
#Small bowel obstruction
#A-fib with RVR requiring cardizem gtt - now off gtt and rate is controlled
#Hypokalemia - resolved
#Metabolic alkalosis likely due to contraction alkalosis with recent nausea/vomiting and reduced PO intake in setting of SBO s/p NGT - alkalosis is improved
#Chronic HFpEF
#Valvular heart disease with mild MR, mild AI and mild TR with normal PASP via TTE from 04/18/2023
#History of postmenopausal osteoporosis
#Anxiety
#GERD
#History of colon polyps/tubular adenoma
Plan:
- Patient has a 2 cm nodule in the costophrenic sulcus of her left lower lobe
- I personally reviewed her prior CT chest from May 2012 and at that time she had a nodule in that same location which measured 7 mm
- Given that this nodule has grown from 7 mm to now 20 mm in the same location over a 12 year period, this is concerning for malignancy
-Yesterday, I discussed the CT chest findings with growing nodule since 2011 and she would not be understood in obtaining treatment, including radiation, surgery or chemo/immunotherapy. I contacted her adopted nephew, Salty, and spoke with him
today. He agrees with this plan. I offered to continue following up with the patient as an outpatient in case she changes her mind. Both the patient and Salty agree with this plan.
- No additional imaging needed at this time given no intervention/treatments will be offered despite what the pathology shows, as per the patient's wishes
- Maintain SpO2 >90-94% with supplemental O2 and wean as tolerated
- PT/OT
- Incentive spirometer encouraged 10x per hour for at least 4 hrs a day
- Check an ambulatory pulse oximetry prior to discharge
- prn nebulized bronchodilators - pt not currently bronchospastic
- Goal HR<110
- She is now off cardizem gtt
- Replete K>4, Mg>2
- Continue BB and CCB home doses with holding parameters
- Cardiology following and recs appreciated
- NGT has now been removed, she has abd distension but is hungry and tolerating her diet
- ADAT as per surgery
- Of note, small bowel study performed on 08/30/2024 showed dilated small bowel loops with no obstruction to the level of the colon, which is encouraging
- Maintain euglycemia with goal BG >100 and <180
- DVT ppx: LMWH
No additional pulmonary recommendations at this time. Outpatient follow-up with me will be arranged. Pulmonary service will now sign off. Thank you for allowing us to be involved in the care of this patient. Please reconsult if there are any
additional questions/concerns, or if patient's respiratory status deteriorates.
Data:
CT abdomen/pelvis without contrast 08/27/2024:
1). Small bowel obstruction
2). 2 cm left lower lobe pulmonary mass may be benign or malignant and could be further evaluated with PET scan
3). Multilevel lumbar degenerative disc disease with grade 1 spondylolisthesis of L4 on L5
Total time spent today was 26 minutes for this encounter. Time includes reviewing laboratory test/imaging results, reviewing pertinent medical records, obtaining and reviewing medical history, performing an appropriate exam, ordering medications,
tests and procedures. Time also includes documentation of this encounter, coordinating patient care and communicating with other healthcare professionals. Total time does not include separately billed tests performed on this date of service.
Subjective Data
-
Date of Service:
Date of Service: September 01, 2024
Chief Complaint: Pulmonary Follow Up
Subjective:
Patient was seen and evaluated today at bedside. She is doing well, denying abdominal pain, shortness of breath, nausea, cough, fevers or chills. She is currently on 2 L/min nasal cannula breathing comfortably. Cardizem drip is off. She is eager
to go home.
Review of Systems
General: Other (Negative unless mentioned above)
Objective Data
Data Reviewed
Vital Signs / I&O / Oxygen:
Vital Signs
Temp Pulse Resp BP Pulse Ox
97.6 F 111 17 137/77 97
09/01/24 07:36 09/01/24 07:36 09/01/24 07:36 09/01/24 07:36 09/01/24 07:36
Intake and Output
08/31/24 09/01/24 09/02/24
06:59 06:59 06:59
Intake Total 270 / 270 1120 / 1120
Output Total 1200 / 1200
Balance -930 / -930 1120 / 1120
SaO2 97
Nasal Cannula flow liters per 2
minute
Physical Exam
General: Respiratory Distress (negative), Comfortable, Chills (negative) and Sweats (negative)
HEENT: Normocephalic, Anicteric and Moist Mucous Membranes
Cardiovascular: Irregular Rhythm (Irregularly irregular) and Peripheral Edema (negative)
Respiratory: Clear, Wheeze (negative), Crackles (negative), Rhonchi (negative) and Non-Labored Respirations
GI: Soft, Distended, Non Tender and Normal Bowel Sounds
Neurology: Awake, Alert and Tremors (negative)
Skin: Warm, Dry, Cyanosis (negative) and Jaundice (negative)
Labs/Micro/Reports
Lab Data
09/01/24 06:29
09/01/24 06:29
--- NOTE | 2024-09-01 09:24 | W.PN.CARDCBS ---
Addendum entered and electronically signed by Blanquita Monk MD 09/01/24 14:52:
I saw and examined the patient.
The Vp Delivery's note was reviewed and I agree with the note. Exam stable as noted.
Comment: She has no current complaints. She is stable from a cardiovascular point of view. We resumed usual outpatient medications. She tells me she will be discharged today. Oral anticoagulation also resumed. She will contact our office if any
issues are noted. We will make sure she has follow-up in our office. No further cardiac recommendations at this time.
Original Note:
Today's Communication / Plan
-
increase po lopressor. follow HRs
will discuss timing of resuming OP eliquis 2.5mg BID with general surgery
Impression / Plan
-
PCP: Dr. Kahn
Cardiology: Dr. Batista
Impression:
Admitted with SBO 08/27/24
Persistent Afib, with RVR
Chronic Eliquis OAC
HTN
h/o syncope
Mild MR/AI by echo 04/18/23
Echo 04/18/23: EF 60 to 65%, mild MR, aortic sclerosis without stenosis and mild aortic regurgitation, mild TR with normal PAP
Plan:
-Overall heart rate trends in A-fib are improving overnight, however still remains suboptimal. She has been transitioned off of IV Cardizem and back on oral regimen of lopressor 50mg BID and cardizem cd 180mg HS (prior to admission was on cardizem
cd 180mg HS and toprol 100mg daily). she reports at home she typically has intermittent feelings of heart racing and palpitations. will increase lopressor dose to 75mg BID, eventually can transition back to toprol prior to DC. continue PRN IV
lopressor
-NGT now out. started on clear liquids
-will discuss timing of resuming OP eliquis 2.5mg BID with general surgery
-wean supp O2 as able
-d/w nursing
PREADMIT DATA:
-Patient came to [facility] late last night with epigastric pain and was admitted with SBO and cardiology is now consulted for pre-operative evaluation and persistent Afib. Patient didn't feel well for hours prior to coming to the ER last
and complaining of pain and N/V. No h/o SBO, but patient found to have SBO and was admitted. NGT placed 08/28/24 with high output, but no resolution of SBPO. Patient is awaiting the results of her SBFT and says that she has been told surgery
is a possibility at this point. Patient denies chest pain or SOB. Patient has a h/o resting SOB when she feels anxious, but says she is able to go on walks without chest pain or CARLSON. Patient also has a h/o palpitations and persistent Afib. Patient
takes Toprol XL 100 mg in the AM and Cardizem CD 180 mg at night. There was an attempt at rhythm control in 10/2021, but within a month of CV she reverted back to Afib and has been on a rate control strategy since then. Patient takes Eliquis 2.5 mg
BID (age 84, Cre 0.6, wt 54.8 kg). Last echo from 04/18/23 with preserved EF and only mild MR.
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
Subjective
Date of Service: September 01, 2024
reports chronic occasional heart racing, palpitations. no CP, SOB.
Objective
Labs:
09/01/24 06:29
09/01/24 06:
Labs
Hgb 13.1 g/dL (12.0-16.0) 09/01/24 06:29
Hct 40.9 % (37.0-47.0) 09/01/24 06:29
Plt Count 234 10^3/uL (130-400) 09/01/24 06:29
Sodium 143 mmol/L (135-145) 09/01/24 06:
Potassium 3.6 mmol/L (3.5-5.1) 09/01/24 06:29
BUN 15 mg/dl (7-17) 09/01/24 06:29
Creatinine 0.5 mg/dL (0.6-1.0) L 09/01/24 06:29
Glucose 96 mg/dl (70-99) 09/01/24 06:29
Vital Signs and I&O:
Vital Signs
Temp Pulse Resp BP Pulse Ox
97.6 F 111 17 137/77 97
09/01/24 07:36 09/01/24 07:36 09/01/24 07:36 09/01/24 07:36 09/01/24 07:36
Vital Signs
Temp Pulse Resp BP Pulse Ox
97.6 F 111 17 137/77 97
09/01/24 07:36 09/01/24 07:36 09/01/24 07:36 09/01/24 07:36 09/01/24 07:36
Intake & Output
08/30/24 08/31/24 09/01/24 09/02/24
07:59 07:59 07:59 07:59
Intake Total 270 / 270 1120 / 1120
Output Total 3050 / 3050 1200 / 1200
Balance -3050 / -3050 -930 / -930 1120 / 1120
Physical Exam
Physical Exam
GEN: No distress, awake, alert, oriented x3. on supp O2
HEENT: supple, anicteric, mmm, eomi.
LUNGS: CTA B/L, no wheezes/rales
CV: Irreg irreg, S1/S2, no murmur
ABD: soft, BS+, NT/ND
EXT: No cyanosis, clubbing, edema
NEURO: Gross non-focal
SKIN: Warm, pink, dry. No rash
--- NOTE | 2024-09-01 11:06 | W.PN.GS2 ---
Today's Communication / Plan
-
Adv to LRD
OK for DC home when tolerating
Assessment / Plan
-
Patient is a 84 yo F with h/o ROSSI/BSO and PAF on Eliquis (LD 10/31 am) p/w SBO
SBFT with mild SB dilation, contrast progression to colon
Afebrile
Cards following
Clinically and radiographically improved. Repeat electrolytes and IV fluid resuscitation per hospitalist.
-- No plans for surgery at this time
-- Adv to LRD, advised to go slow
-- Analgesics/antiemetics prn
-- Resume home Eliquis
-- Replete lytes, IVF resuscitation per Hospitalist
-- Cardiac management as per Cardiology
-- DVT: restart eliquis
-- OOB/ambulate
Subjective Data
-
Date of Service: September 01, 2024
AFVSS, passing flatus and BMs, denies n/v, ksenia CLD
Objective Data
-
Intake and Output
08/31/24 09/01/24 09/02/24
06:59 06:59 06:59
Intake Total 270 / 270 1120 / 1120
Output Total 1200 / 1200
Balance -930 / -930 1120 / 1120
Intake:
Oral fluids 240 / 240 1120 / 1120
Amount instilled into GI Tube ( 30 / 30
Total)
[place] Sump 30 / 30
Output:
Gastrointestinal tube output ( 1200 / 1200
Total)
[place] Sump 1200 / 1200
Other:
Number of approximated SMALL 1
amounts of urine
Number of approximated MODERATE 1 2
amounts of urine
Number of approximated LARGE 1
amounts of urine
How many times incontinent 1
MODERATE amount urine
Vital Signs
Temp Pulse Resp BP Pulse Ox
97.6 F 111 17 137/77 97
09/01/24 07:36 09/01/24 07:36 09/01/24 07:36 09/01/24 07:36 09/01/24 07:36
Lab Results
09/01/24 06:29
09/01/24 06:29
Calcium 7.6 mg/dl (8.4-10.2) L 09/01/24 06:29
Magnesium 2.3 mg/dl (1.6-2.3) 09/01/24 06:29
Total Bilirubin 0.9 mg/dl (0.2-1.3) 08/26/24 22:34
AST 28 U/L (14-36) 08/26/24 22:34
ALT 22 U/L (0-35) 08/26/24 22:34
Alkaline Phosphatase 64 U/L (38-126) 08/26/24 22:34
Total Protein 7.2 g/dl (6.3-8.2) 08/26/24 22:34
Albumin 4.5 g/dl (3.5-5.0) 08/26/24 22:34
Physical Exam
-
Gen: NAD
Abd: soft, nt, nd
--- NOTE | 2024-09-01 11:16 | W.PN.UPDATE ---
Update Note
Progress Note Update
d/w surgery. ok to resume eliquis, will start back on 2.5mg BID tonight.
[2024-09-01 11:18] VITALS: BP 118/70
--- NOTE | 2024-09-01 14:06 | W.DCSUMMARY ---
Discharge Summary
Discharge Data
Date of Admission: 08/27/24
Date of Discharge: 09/01/24
-
Pending Results: No
Hospital Course
Patient 84-year-old female history of CHF, A-fib, hyperlipidemia, congenital mitral valve prolapse, came into the hospital with abdominal pain nausea and vomiting found to have small bowel obstruction. Surgery was consulted. She was kept n.p.o.
with IV fluids and NG tube was placed. Surgery followed throughout his hospital stay. Patient ultimately improved with conservative measures. NG tube was removed and she was able to tolerate low residue diet without any problems. She is also
having bowel movements and her abdomen is benign. Surgery has cleared her for discharge. During her hospital stay she also had A-fib with rapid ventricular response difficult to control and she had to be placed on IV Lopressor and at some point on
IV Cardizem drip as well but once we switch to her oral rate control agent she has been much improved. Cardiology has seen her. Cardiology recommend increase her outpatient beta-blockers upon discharge. She is also okay to go back on her
anticoagulation. Patient also was noted to have a lung mass and pulmonary was consulted and after discussion with patient and family they opted not to pursue any further workup and spite of possibility of lung malignancy. She participated with PT
and OT who recommended home health and this has been arranged. Patient otherwise is doing much better and hemodynamically stable. She will be discharged in relatively stable condition today.
Discharge duration: 35 minutes
Discharge Plan
-
Patient Disposition: Home with Home Care
Discharge Diagnosis/Procedures: Small bowel obstruction, resolved. Persistent atrial fibrillation. Lung mass (patient declined further workup).
Diet: Low Cholesterol
Activity: As tolerated
Blood Work: Please PCP to order CBC, BMP within 1 week
Referrals:
Mitul Alonso MD [Active] - in four to six weeks
Kristel Kahn MD [Family Provider] - in less than 1 week
Brandi Sadler PA-C [Specified Professional Personl] - 09/15/24 3:00 am (You have a cardiology follow up appointment at the [place] office with Dr. Batista's physician certified nursing assistant instructor, Brandi. Please call with questions. )
Prescriptions:
New
metoprolol succinate [Toprol XL] 50 mg tablet extended release 24 hr
75 mg PO Q12H Qty: 90 5RF
Continued
Eliquis 2.5 MG tablet
2.5 mg PO BID Qty: 60 5RF
diltiazem HCl 180 mg Capsule,Extended Release 24 Hr
180 mg PO QPM
furosemide 20 mg Tablet
20 mg PO DAILY
therapeutic multivitamin Tablet
1 tab PO DAILY
acetaminophen 650 mg Tablet Extended Release
1,300 mg PO Q12H
cholecalciferol (vitamin D3) [Vitamin D3] 25 mcg (1,000 unit) Tablet
25 mcg PO DAILY
Discontinued
metoprolol succinate 100 mg Tablet Extended Release 24 Hr
100 mg PO DAILY
Discharge Orders:
Discharge Patient (As Directed); Ordered 09/01/24
Ordered By: Abe Callejas
Discharge Date and Time
Discharge Date/Time: 09/01/24 16:43
Print Language: PUERTO RICAN
[2024-09-01 15:38] VITALS: BP 145/83
[2024-09-01] MEDS: TOPROL XL 25 MG PO (15:45)
--- NOTE | 2024-09-02 13:14 | CM ---
Sent referral for [facility] for patient who left yesterday as well as address in [place] where she currently resides.
== END 2024-09-01 16:43 | disposition home health service (06) | DRG 389 ==
LOC: 3 WEST ACU 03:33
PROVIDERS: Emergency Medicine; Internal Medicine; Nurse Practitioner Gerontology; Radiology Diagnostic Radiology; ADMITTING PHYSICIAN Hospitalist; ATTENDING PHYSICIAN Hospitalist; CONSULT PHYSICIAN Internal Medicine Cardiovascular Disease; CONSULT PHYSICIAN Internal Medicine Critical Care Medicine; EMERGENCY PHYSICIAN Student in an Organized Health Care Education/Training Program; FAMILY PHYSICIAN Student in an Organized Health Care Education/Training Program; OTHER PHYSICIAN Surgery
PROC: 0D9670Z Drainage of Stomach with Drainage Device, Via Natural or Artificial Opening (ICD-10-PCS; 2024-08-27)
DX: K56.52 Intestinal adhesions [bands] with complete obstruction (principal); E87.3 Alkalosis; I48.19 Other persistent atrial fibrillation; I50.32 Chronic diastolic (congestive) heart failure; I48.92 Unspecified atrial flutter; M19.90 Unspecified osteoarthritis, unspecified site; G57.63 Lesion of plantar nerve, bilateral lower limbs; I70.0 Atherosclerosis of aorta; R91.8 Other nonspecific abnormal finding of lung field; E78.00 Pure hypercholesterolemia, unspecified; I11.0 Hypertensive heart disease with heart failure; M81.0 Age-related osteoporosis without current pathological fracture; F41.9 Anxiety disorder, unspecified; K21.9 Gastro-esophageal reflux disease without esophagitis; I08.0 Rheumatic disorders of both mitral and aortic valves; E87.6 Hypokalemia; M43.16 Spondylolisthesis, lumbar region; R11.2 Nausea with vomiting, unspecified; Z60.2 Problems related to living alone; Z66 Do not resuscitate; Z91.041 Radiographic dye allergy status; Z79.01 Long term (current) use of anticoagulants; Z82.49 Family history of ischemic heart disease and other diseases of the circulatory system; Z90.710 Acquired absence of both cervix and uterus; Z80.1 Family history of malignant neoplasm of trachea, bronchus and lung; Z86.0100 Personal history of colon polyps, unspecified; Z82.62 Family history of osteoporosis
CPT/HCPCS: 74018; 74019; 74176; 74250; 80048; 80053; 83690; 83735; 84484; 85025; 85027; 93005; 96374; 96375; 97162; 97166; 99285

== ENCOUNTER → 2024-09-22 15:49 | Outpatient (REF) | payer MEDICARE, SELFPAY | LOC: HWRCS 15:49 | PROVIDERS: ATTENDING PHYSICIAN Physician Assistant Medical; FAMILY PHYSICIAN Student in an Organized Health Care Education/Training Program | DX: I48.0 Paroxysmal atrial fibrillation (principal) | CPT/HCPCS: 93306 ==

== ENCOUNTER → 2025-05-27 11:05 | Outpatient (REF) | payer MEDICARE, SELFPAY ==
[2025-05-27 12:59] LABS: Hematocrit 44.3 % (37.0-47.0); Hemoglobin 14.2 g/dL (12.0-16.0); Mean Corp Hgb Conc. 32.1 g/dL (33.0-37.0); Mean Corpuscular Volume 94.5 fL (81.0-99.0); Nucleated Red Blood Cells % 0 %; Platelet Count 273 10^3/uL (130-400); Red Cell Dist. Width 12.7 % (11.5-14.5)
[2025-05-27 13:34] LABS: Glycohemoglobin (HgbA1c) 5.6 % (4.0-5.6)
[2025-05-27 13:38] LABS: Vitamin D, 25-OH*** 39.0 ng/mL (30-80)
[2025-05-27 13:47] LABS: ALT (SGPT) 18 U/L (0-35); AST (SGOT) 22 U/L (14-36); Albumin 4.5 g/dl (3.5-5.0); Alkaline Phosphatase 55 U/L (38-126); Blood Urea Nitrogen 19 mg/dl (7-17); Calcium 9.5 mg/dl (8.4-10.2); Carbon Dioxide 28 mmol/L (22-30); Chloride 98 mmol/L (98-107); Glucose 100 mg/dl (70-99); HDL Cholesterol 67 mg/dl; LDL Cholesterol, Calculated 130 mg/dl; Potassium 4.9 mmol/L (3.5-5.1); Sodium 132 mmol/L (135-145); Total Protein 7.5 g/dl (6.3-8.2); Very Low Density Lipoprotein 24 mg/dl (0-30); eGFR > 60.00
== END ==
LOC: REG 11:05
PROVIDERS: ATTENDING PHYSICIAN Internal Medicine Cardiovascular Disease; FAMILY PHYSICIAN Family Medicine; REFERRING PHYSICIAN Internal Medicine Rheumatology
DX: I50.32 Chronic diastolic (congestive) heart failure (principal); M81.0 Age-related osteoporosis without current pathological fracture; I48.0 Paroxysmal atrial fibrillation; E78.5 Hyperlipidemia, unspecified; R73.9 Hyperglycemia, unspecified; F41.9 Anxiety disorder, unspecified
CPT/HCPCS: 36415; 80053; 80061; 82306; 83036; 83880; 84443; 85025

== ENCOUNTER → 2025-09-13 06:46 | Outpatient (REF) | payer MEDICARE, SELFPAY | LOC: RAD 06:46 | PROVIDERS: ATTENDING PHYSICIAN Family Medicine; FAMILY PHYSICIAN Student in an Organized Health Care Education/Training Program | DX: M25.551 Pain in right hip (principal); M25.552 Pain in left hip | CPT/HCPCS: 72100; 73523 ==